=== PATIENT | female | born 1935 | race Caucasian/White ===

== ENCOUNTER 2017-06-30 19:14 | Inpatient (IN) | payer MEDICARE ==
[2017-06-30 19:42] LABS: #Eosinphils 0.4 thou/uL (0.0-0.7); #Lymphocytes 3.6 thou/uL (1.20-3.40); #Monocytes 0.9 thou/uL (0.11-0.59); #Neutrophils 7.9 thou/uL (1.40-6.50); %Basophils 0.3 % (0.0-1.0); %Eosinophils 2.9 % (0.0-10.0); %Lymphocytes 27.8 % (21.0-51.0); Hematocrit 43.1 % (36.0-47.0); Mean Platelet Volume 8.4 fL (7.4-10.4); Red Blood Cell (RBC) Count 4.48 mill/uL (4.20-5.40); White Blood Cell (WBC) Count 12.8 thou/uL (4.8-10.8)
[2017-06-30 20:17] LABS: ALT (SGPT) 19 U/L (8-55); AST (SGOT) 38 U/L (5-34); Alkaline Phosphatase 99 U/L (40-150); Anion Gap 19 mmol/L (10-20); BUN (Urea Nitrogen) 14 mg/dL (9.8-20.1); CK (CPK) 67 U/L (29-168); Calc. Creatinine Clearance 0 mL/min (70-130); Carbon Dioxide 26 mmol/L (23-31); Chloride 100 mmol/L (98-107); Estimated GFR-MDRD 49; Globulin 3.6 g/dL (2.4-3.5); Protein, Total 7.3 g/dL (6.0-8.3)
[2017-06-30] MEDS ORDERED: Apixaban 5 MG TAB PO SCH (20:30)
--- NOTE | 2017-06-30 20:58 | RAD ---
SINGLE VIEW OF THE CHEST: Comparison: 08-11-16 History: Chest pain. FINDINGS: Single view of the chest shows an enlarged but stable cardiomediastinal silhouette. Increased inters titial markings are stable. There is no evidence of consolidation, mass, or pleural effusion. Degene rative changes are seen in the spine. IMPRESSION: No evidence of acute cardiopulmonary disease. POS: [facility]
[2017-06-30] MEDS ORDERED: Digoxin 0.5 MG/2 ML AMP ONE (21:30)
[2017-06-30] MEDS: Diltiazem HCl 125 MG, IV Admixture Fee 1 EACH in Sodium Chloride 0.9% 100 ML SLOW IVP SCH (23:20)
[2017-06-30] MEDS ORDERED: Acetaminophen 325 MG TAB PO PRN (23:37)
[2017-06-30] MEDS ORDERED: Ondansetron HCl/PF 4 MG/2 ML Vial IVP PRN (23:37)
[2017-06-30] MEDS ORDERED: Ondansetron ODT 4 MG TAB SL PRN (23:37)
[2017-06-30] MEDS ORDERED: Diltiazem HCl 125 MG, IV Admixture Fee 1 EACH in Sodium Chloride 0.9% 100 ML SLOW IVP SCH (23:45)
[2017-06-30] MEDS ORDERED: Sodium Chloride 0.9% 1,000 ML IV SCH (23:45)
[2017-07-01 02:32] LABS: Troponin I 0.023 ng/mL (< 0.028)
[2017-07-01] MEDS ORDERED: Potassium Chloride 10 MEQ TAB PO SCH (09:00)
[2017-07-01] MEDS ORDERED: Furosemide 40 MG/4 ML VIAL SLOW IVP SCH (09:00)
[2017-07-01] MEDS ORDERED: Apixaban 5 MG TAB PO SCH (09:00)
[2017-07-01] MEDS: Sodium Chloride 0.9% 10 ML ONE ×2 (09:54→21:02)
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
[2017-07-01] MEDS ORDERED: Artificial Tears 18 DROP/0.9 ML EA EYE PRN (11:18)
[2017-07-01 11:25] LABS: Bilirubin Negative (Negative); Blood, Urine Moderate (Negative); Glucose, Urine (Dipstick) Negative (Negative); Ketone, Urine Negative (Negative); Nitrite Positive (Negative); Protein, Urine (Dipstick) Trace mg/dL (Neg-Trace)
[2017-07-01 11:30] LABS: Bacteria/HPF 4+ HPF (None Seen); Hyaline Casts/LPF 0-3 HYALINE CAST LPF (0-3 Hyaline); Squamous Epithelial 0-3 HPF (0-3)
--- NOTE | 2017-07-01 12:21 | ULT ---
ABDOMINAL ULTRASOUND: HISTORY: Mid abdominal pain. FINDINGS: The patient is post cholecystectomy. The common duct is within the normal range for post cholecyste ctomy status, at 6 mm. The aorta and IVC are not imaged due to overlying bowel gas. The pancreas i s obscured. the liver is mildly heterogeneous, however, no focal mass seen. Overlying bowel gas ob scures detail. The spleen appears unremarkable. Both kidneys are imaged. There is evidence of bilateral cortical thinning. No hydronephrosis. Bot h kidneys show equal size, measuring approximately 10 cm in length. IMPRESSION: Limited exam. The patient is post cholecystectomy. No abnormality identified. POS: [facility]
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
[2017-07-01 19:31] LABS: #Eosinphils 0.3 thou/uL (0.0-0.7); #Lymphocytes 2.3 thou/uL (1.20-3.40); #Neutrophils 7.2 thou/uL (1.40-6.50); %Basophils 0.3 % (0.0-1.0); %Eosinophils 3.1 % (0.0-10.0); %Lymphocytes 21.1 % (21.0-51.0); Hematocrit 41.8 % (36.0-47.0); Mean Platelet Volume 8.9 fL (7.4-10.4); Red Blood Cell (RBC) Count 4.21 mill/uL (4.20-5.40); White Blood Cell (WBC) Count 10.8 thou/uL (4.8-10.8)
[2017-07-01] MEDS: Diltiazem HCl 125 MG, IV Admixture Fee 1 EACH in Sodium Chloride 0.9% 100 ML SLOW IVP SCH (20:01)
[2017-07-01] MEDS ORDERED: Metoprolol Tartrate 25 MG TAB PO SCH ×2 (21:00)
[2017-07-01] MEDS: predniSONE 5 MG TAB PO SCH (21:00)
[2017-07-01] MEDS: Apixaban 5 MG TAB PO SCH (21:01)
[2017-07-01] MEDS: Mirtazapine 30 MG TAB PO SCH (21:02)
[2017-07-02] MEDS: ALPRAZolam 0.25 MG TAB PO PRN ×2 (00:12→22:29)
--- NOTE | 2017-07-02 02:06 | CON ---
DATE OF CONSULTATION: 07/01/2017 REFERRING PROVIDER: CHRISTEN Butcher REASON FOR CONSULTATION: Atrial fibrillation. HISTORY OF PRESENT ILLNESS: Ms. Mcnair is a pleasant 81-year-old woman, who is a patient of Dr. Gus Pedraza. She states she has had atrial fibrillation in the past. She has undergone multiple car dioversions. She last saw Dr. Pedraza several weeks ago, but they discussed cardioversion versus rat e control after recurrent atrial fibrillation. She was undecided. She recently presented with shortness of breath. No chest pain or pressure noted. She also complai rene of orthopnea. PAST MEDICAL HISTORY: Chronic atrial fibrillation, hypertension, hyperlipidemia, acid reflux, total abdominal hysterectomy. ALLERGIES: CODEINE, LISINOPRIL, PENICILLIN, and SULFA. HOME MEDICATIONS: Include prednisone, Crestor, Zoloft, Zyloprim, Eliquis, artificial tears, aspirin , potassium, Synthroid, metoprolol and Miralax. FAMILY HISTORY: Negative. SOCIAL HISTORY: No current tobacco or alcohol use. REVIEW OF SYSTEMS: Ten-point review of systems is reviewed and as above, otherwise negative. PHYSICAL EXAMINATION: GENERAL: Patient is a pleasant female who is in no acute distress. The patient appears her stated age. VITAL SIGNS: Blood pressure 129/80, pulse 103, temperature 98. NEUROLOGIC: The patient is alert and oriented times 3 with no focal neurologic deficits. HEENT: Sclerae without icterus. Mouth has moist mucous membranes with normal pallor. NECK: No JVD. Carotid upstroke brisk. No bruits bilaterally. LUNGS: Clear to auscultation with unlabored respirations. BACK: No scoliosis or kyphosis. CARDIAC: Irregular irregular. No significant rubs, murmurs, thrills, or gallops noted throughout t he precordium. PMI is not displaced. There is no parasternal heave. ABDOMEN: Soft, nontender, nondistended. No peritoneal signs present. No hepatosplenomegaly. No a bnormal striae. EXTREMITIES: 2+ femoral and 2+ dorsalis pedis pulses. No cyanosis, clubbing, or edema. SKIN: No gross abnormalities. LABORATORY DATA: Hemoglobin 14.2, creatinine 1.08, sodium 140. Peak troponin 0.050. IMPRESSION: 1. Atrial fibrillation with rapid ventricular response. 2. Shortness of breath. RECOMMENDATIONS: Ms. Mcnair is currently on IV cardizem. We will continue. Metoprolol has been started 25 mg 1 p.o. b.i.d. We will increase to 50 mg 1 p.o. b.i.d. She has also been on p.o. Card izem at home for rate control. Duration of her atrial fibrillation is unknown. The longer the dura tion, the harder it is to convert to sinus rhythm. Continue Eliquis.
[2017-07-02 04:41] LABS: Hematocrit 43.6 % (36.0-47.0)
[2017-07-02 04:42] LABS: #Eosinphils 0.1 thou/uL (0.0-0.7); #Lymphocytes 1.6 thou/uL (1.20-3.40); #Monocytes 0.4 thou/uL (0.11-0.59); #Neutrophils 8.1 thou/uL (1.40-6.50); %Basophils 0.1 % (0.0-1.0); %Lymphocytes 15.5 % (21.0-51.0); %Monocytes 3.9 % (0.0-10.0); Hematocrit 41.5 % (36.0-47.0); Red Blood Cell (RBC) Count 4.21 mill/uL (4.20-5.40); White Blood Cell (WBC) Count 10.2 thou/uL (4.8-10.8)
[2017-07-02 05:10] LABS: ALT (SGPT) 16 U/L (8-55); AST (SGOT) 12 U/L (5-34); Alkaline Phosphatase 93 U/L (40-150); Anion Gap 13 mmol/L (10-20); BUN (Urea Nitrogen) 11 mg/dL (9.8-20.1); Calc. Creatinine Clearance 79 mL/min (70-130); Calcium 9.3 mg/dL (7.8-10.44); Carbon Dioxide 33 mmol/L (23-31); Chloride 100 mmol/L (98-107); Estimated GFR-MDRD 53; Globulin 3.1 g/dL (2.4-3.5); Protein, Total 6.7 g/dL (6.0-8.3)
[2017-07-02] MEDS: Levothyroxine Sodium 25 MCG TAB PO SCH (05:25)
[2017-07-02] MEDS: Aspirin 81 mg Enteric Coated Tablet PO SCH (09:42)
[2017-07-02] MEDS: Apixaban 5 MG TAB PO SCH ×2 (09:42→21:02)
[2017-07-02] MEDS: Metoprolol Tartrate 25 MG TAB PO SCH ×2 (09:43→21:02)
[2017-07-02] MEDS: Nitrofurantoin Monohyd/M-Cryst 100 MG CAP PO SCH ×2 (09:43→20:59)
[2017-07-02] MEDS: Allopurinol 300 MG TAB PO SCH (09:43)
[2017-07-02] MEDS: Diltiazem HCl 125 MG, IV Admixture Fee 1 EACH in Sodium Chloride 0.9% 100 ML SLOW IVP SCH (20:58)
[2017-07-02] MEDS: Mirtazapine 30 MG TAB PO SCH (20:59)
[2017-07-02] MEDS ORDERED: Diltiazem HCl SR 60 mg Capsule PO SCH (21:00)
[2017-07-02] MEDS: predniSONE 5 MG TAB PO SCH (21:01)
--- NOTE | 2017-07-02 21:11 | PRG ---
DATE OF SERVICE: 07/02/2017 SERVICE: Pulmonary Medicine. INTERVAL HISTORY: The patient is doing really well from a respiratory standpoint. She denies any c urrent fevers, chills, nausea, or vomiting. She continues to cough, but does not bringing up any ph legm. She has a little bit of orthopnea. Otherwise, she is much improved compared to presentation. PHYSICAL EXAMINATION: VITAL SIGNS: Afebrile, pulse 95, blood pressure 122/71, respirations 22, and saturation 95% on 2 li ters nasal cannula. HEENT: Normocephalic and atraumatic. Sclerae are white, conjunctivae pink. Oral and nasal mucosa is moist without lesions. LUNGS: Decent air entry. Crackles are present throughout bibasilar regions. HEART: Normal rate, irregular. ABDOMEN: Soft, nontender, and nondistended. Bowel sounds positive. MUSCULOSKELETAL: No cyanosis or clubbing. There is trace to 1+ pitting in the bilateral lower extr emities. LABORATORY DATA: Hemoglobin 14.0. A comprehensive metabolic profile is otherwise unremarkable exce pt for glucose of 170 and bicarbonate of 33. BNP 197 previously. Urine cultures growing E. coli. C. diff antigen and toxin is unremarkable. ASSESSMENT: 1. Acute on chronic hypoxic respiratory failure. 2. Interstitial lung disease, currently at baseline. 3. Atrial fibrillation with rapid ventricular response, currently rate controlled. PLAN: We will continue to diurese the patient to euvolemia. Supportive care and a steroid taper wi ll be continued through the inpatient and outpatient basis. Pulmonary Critical Care will continue t o follow while the patient remains in-house.
[2017-07-03] MEDS: Levothyroxine Sodium 25 MCG TAB PO SCH (05:56)
[2017-07-03] MEDS ORDERED: Diltiazem HCl 125 MG, IV Admixture Fee 1 EACH in Sodium Chloride 0.9% 100 ML SLOW IVP SCH ×2 (08:47→09:15)
[2017-07-03] MEDS: Apixaban 5 MG TAB PO SCH ×2 (08:49→21:33)
[2017-07-03] MEDS: Aspirin 81 mg Enteric Coated Tablet PO SCH (08:49)
[2017-07-03] MEDS: Metoprolol Tartrate 25 MG TAB PO SCH ×2 (08:49→21:33)
[2017-07-03] MEDS: Allopurinol 300 MG TAB PO SCH (08:49)
[2017-07-03] MEDS: Nitrofurantoin Monohyd/M-Cryst 100 MG CAP PO SCH ×2 (08:50→21:33)
--- NOTE | 2017-07-03 08:53 | PRG ---
DATE OF SERVICE: 07/03/2017 SUBJECTIVE: The patient is awake. She is on oxygen. She states she is less short of breath today. She is still in atrial fibrillation. She is on a Cardizem drip. PHYSICAL EXAMINATION: VITAL SIGNS: Blood pressure is 137/73, pulse 99, respiration 26. NECK: Supple. JVP cannot be assessed due to obese neck. Carotid had good upstroke with no thyrome esme. COR: Irregularly irregular with variable first and second heart sound. There was no murmur, S3. CHEST: A few crackles. ABDOMEN: Soft, nontender, obese. Normoactive bowel sounds, no bruit or organomegaly. EXTREMITIES: Trace edema. She had palpable pedal pulses. SKIN: There is no evidence of ulcer, lesion or rash. NEUROLOGIC: She is awake, alert, and oriented to person, place, and time. There is no lab in the chart. ASSESSMENT: 1. Atrial fibrillation with rapid ventricular response, now controlled. 2. Interstitial lung disease. 3. Hypertension. 4. Obesity. 5. Multiple medical problems. 6. Urinary tract infection. PLAN: 1. We will continue the medications for her urinary tract infection. 2. We will follow up with lab in the morning. 3. Further orders per Cardiology.
[2017-07-03] MEDS ORDERED: Furosemide 20 MG/2 ML VIAL SLOW IVP SCH (11:45)
--- NOTE | 2017-07-03 11:55 | PRG ---
DATE OF SERVICE: 07/03/2017 SERVICE: Pulmonary Medicine. INTERVAL HISTORY: The patient is doing great from a respiratory standpoint. She continues to have improvement in symptoms. She has less dyspnea. She is yet to work with physical therapy in a meani ngful way, but does get out of bed. PHYSICAL EXAMINATION: VITAL SIGNS: Currently afebrile with T-max of 99.8. Pulse 87, blood pressure 129/73, respirations 18, saturation 92% on 2 liters nasal cannula. GENERAL: Patient is awake, alert, in no apparent distress. LUNGS: Decent air entry. There is a slightly prolonged expiratory phase today with crackles presen t throughout bibasilar and anterior lung reyna. There is expiratory wheezing today. HEART: Normal rate, regular. ABDOMEN: Soft, nontender, nondistended. Bowel sounds positive. MUSCULOSKELETAL: No cyanosis or clubbing. There is trace pitting in the bilateral lower extremitie s. NEUROLOGIC: Grossly nonfocal. ASSESSMENT: 1. Acute on chronic hypoxic respiratory failure. 2. Interstitial lung disease, currently at baseline. 3. Atrial fibrillation with rapid ventricular response, currently normal rhythm. PLAN: We will continue to diurese the patient to euvolemia. Because of her wheezing today, we will provide with a DuoNeb and then continued him on a p.r.n. basis. Pulmonary will continue to follow while the patient remains in house. We will start focusing on increasing mobility as tolerated.
--- NOTE | 2017-07-03 17:42 | PDOC.CTH ---
<Indu Cosby - Last Filed: 07/03/17 17:46> Cardiology Progress Note - Subjective Patient seen and examined. Reports SOB continues to improve. She denies CP or palpitations. - Objective Vital Signs Temp Pulse Pulse Pulse Resp BP BP 07/03/17 16:00 97.8 F 87 18 07/03/17 15:03 103 H 20 07/03/17 12:00 97.8 F 87 18 07/03/17 10:45 83 86 108/56 L 106/61 07/03/17 08:00 97.5 F L 87 18 BP BP Pulse Ox 07/03/17 16:00 112/59 L 91 L 07/03/17 15:03 96 07/03/17 12:00 112/59 L 91 L 07/03/17 10:45 07/03/17 08:00 129/73 95 Weight 242 lb 9.6 oz 07/02/17 07/03/17 07/04/17 06:59 06:59 06:59 Intake Total 895.4 1103.5 Output Total 900 200 Balance -4.6 903.5 - Physical Examination General/Neuro: alert & oriented x3, NAD Neck: no JVD present Lungs: unlabored respirations, other: (scattered wheezes, rales) Heart: other: (irregular) Extremities: other: (1+ edema BLE) - Telemetry Telemetry Rhythm: afib - Labs Result Diagrams: 07/02/17 04:17 07/02/17 04:17 Troponin/CKMB CK-MB (CK-2) 1.5 ng/mL (0-6.6) 06/30/17 19:33 Troponin I 0.023 ng/mL (< 0.028) 07/01/17 01:43 - Assessment/Plan 1. Afib with RVR 2. SOB Ms. Mcnair' status continues to improve. Afib is rate controlled on current therapies.We will add cardizem 180mg po this morning and start weaning cardizem gtt. We will monitor her response. <Amilcar Byrd - Last Filed: 07/04/17 06:24> Cardiology Progress Note - Objective Vital Signs Temp Pulse Resp BP Pulse Ox 07/04/17 00:00 98.1 F 84 18 130/77 90 L 07/03/17 19:40 99.1 F 102 H 18 119/62 96 Weight 242 lb 9.6 oz 07/02/17 07/03/17 07/04/17 06:59 06:59 06:59 Intake Total 895.4 1103.5 1167.4 Output Total 900 200 625 Balance -4.6 903.5 542.4 - Labs Result Diagrams: 07/04/17 05:18 07/03/17 19:31 Troponin/CKMB CK-MB (CK-2) 1.5 ng/mL (0-6.6) 06/30/17 19:33 Troponin I 0.023 ng/mL (< 0.028) 07/01/17 01:43 - Assessment/Plan Pt seen and examined. Continue to wean off IV CCB and recommend rate control Daughter is present who agrees with the plan
[2017-07-03 19:39] LABS: #Eosinphils 0.6 thou/uL (0.0-0.7); #Lymphocytes 1.1 thou/uL (1.20-3.40); #Monocytes 0.6 thou/uL (0.11-0.59); #Neutrophils 7.9 thou/uL (1.40-6.50); %Basophils 0.2 % (0.0-1.0); %Eosinophils 5.8 % (0.0-10.0); %Lymphocytes 11.1 % (21.0-51.0); %Monocytes 5.6 % (0.0-10.0); Hematocrit 39.5 % (36.0-47.0); Mean Platelet Volume 7.5 fL (7.4-10.4); Red Blood Cell (RBC) Count 3.99 mill/uL (4.20-5.40); White Blood Cell (WBC) Count 10.2 thou/uL (4.8-10.8)
[2017-07-03] MEDS: predniSONE 5 MG TAB PO SCH (21:33)
[2017-07-03] MEDS: ALPRAZolam 0.25 MG TAB PO PRN (21:33)
[2017-07-03] MEDS: Mirtazapine 30 MG TAB PO SCH (21:34)
[2017-07-04 06:03] LABS: #Eosinphils 0.3 thou/uL (0.0-0.7); #Lymphocytes 1.1 thou/uL (1.20-3.40); #Monocytes 0.4 thou/uL (0.11-0.59); #Neutrophils 6.4 thou/uL (1.40-6.50); %Eosinophils 3.1 % (0.0-10.0); %Lymphocytes 13.6 % (21.0-51.0); %Monocytes 4.4 % (0.0-10.0); Hematocrit 38.1 % (36.0-47.0); Mean Platelet Volume 7.9 fL (7.4-10.4); Red Blood Cell (RBC) Count 3.84 mill/uL (4.20-5.40); White Blood Cell (WBC) Count 8.1 thou/uL (4.8-10.8)
[2017-07-04] MEDS: Levothyroxine Sodium 25 MCG TAB PO SCH (06:31)
[2017-07-04 06:35] LABS: ALT (SGPT) 12 U/L (8-55); AST (SGOT) 10 U/L (5-34); Alkaline Phosphatase 85 U/L (40-150); Anion Gap 13 mmol/L (10-20); BUN (Urea Nitrogen) 14 mg/dL (9.8-20.1); Bilirubin, Total 0.7 mg/dL (0.2-1.2); Calc. Creatinine Clearance 81 mL/min (70-130); Carbon Dioxide 33 mmol/L (23-31); Chloride 98 mmol/L (98-107); Estimated GFR-MDRD 55; Globulin 3.1 g/dL (2.4-3.5); Protein, Total 6.4 g/dL (6.0-8.3)
[2017-07-04] MEDS: Allopurinol 300 MG TAB PO SCH (09:06)
[2017-07-04] MEDS: Aspirin 81 mg Enteric Coated Tablet PO SCH (09:06)
[2017-07-04] MEDS: Metoprolol Tartrate 25 MG TAB PO SCH ×2 (09:07→21:00)
[2017-07-04] MEDS: Furosemide 20 MG/2 ML VIAL SLOW IVP SCH (09:07)
[2017-07-04] MEDS: Nitrofurantoin Monohyd/M-Cryst 100 MG CAP PO SCH ×2 (09:08→21:01)
[2017-07-04] MEDS: Apixaban 5 MG TAB PO SCH ×2 (10:50→21:00)
--- NOTE | 2017-07-04 14:20 | PRG ---
DATE OF SERVICE: 07/04/2017 SUBJECTIVE: Ms. Mcnair status is unchanged. Her heart rate appears to be better controlled. She is on low-dose Cardizem at 2.5 mg per hour. OBJECTIVE: VITAL SIGNS: Blood pressure 122/68, pulse 90, respirations 20. LUNGS: Clear to auscultation. HEART: Irregularly irregular. ABDOMEN: Soft, nontender, nondistended. EXTREMITIES: No edema. IMPRESSION: Atrial fibrillation. RECOMMENDATIONS: 1. We will discontinue her IV Cardizem. 2. Increase p.o. Cardizem from 180 to 240 q.a.m. 3. Continue Eliquis. 4. If her heart rate is stable in a.m., would be okay from my standpoint to discharge home with out patient follow up with Dr. Amaury Pedraza.
--- NOTE | 2017-07-04 17:07 | PRG ---
DATE OF SERVICE: 07/04/2017 SERVICE: Pulmonary Medicine. INTERVAL HISTORY: The patient is actually breathing fairly comfortably this morning. She has no co mplaints of nausea, vomiting, chest pain, shortness of breath beyond baseline. She is coughing less today and not bringing up any sputum. Otherwise, there has been no interval change her condition. PHYSICAL EXAMINATION: VITAL SIGNS: Afebrile, pulse 80, blood pressure 114/59, respirations 20, saturation 95% on 2 liters nasal cannula. GENERAL: Patient is awake, alert, in no apparent distress. LUNGS: Decreased air entry. Crackles are present. No prolonged expiratory phase, wheezing or rhon chi. HEART: Normal rate, regular. ABDOMEN: Soft, nontender, nondistended. Bowel sounds positive. MUSCULOSKELETAL: No cyanosis or clubbing. No pitting in the bilateral lower extremities. NEUROLOGIC: Grossly nonfocal. ASSESSMENT: 1. Acute on chronic hypoxic respiratory failure. 2. Interstitial lung disease, currently at baseline. 3. Atrial fibrillation with rapid ventricular response, currently normal rhythm. PLAN: The patient will continue to diurese the euvolemia Pulmonary Critical Care will continue to follow while she remains in house for the time being. We will continue our efforts on mobilizing th e patient as tolerated.
[2017-07-04] MEDS: Mirtazapine 30 MG TAB PO SCH (21:02)
[2017-07-04] MEDS: predniSONE 5 MG TAB PO SCH (21:02)
[2017-07-05] MEDS: Levothyroxine Sodium 25 MCG TAB PO SCH (06:24)
[2017-07-05] MEDS: Metoprolol Tartrate 25 MG TAB PO SCH (09:37)
[2017-07-05] MEDS: Aspirin 81 mg Enteric Coated Tablet PO SCH (09:37)
[2017-07-05] MEDS: Furosemide 20 MG/2 ML VIAL SLOW IVP SCH (09:37)
[2017-07-05] MEDS: Apixaban 5 MG TAB PO SCH ×2 (09:37→20:32)
[2017-07-05] MEDS: Nitrofurantoin Monohyd/M-Cryst 100 MG CAP PO SCH ×2 (09:37→20:33)
[2017-07-05] MEDS: Allopurinol 300 MG TAB PO SCH (09:37)
[2017-07-05] MEDS: ALPRAZolam 0.25 MG TAB PO PRN (12:23)
--- NOTE | 2017-07-05 15:14 | PRG ---
DATE OF SERVICE: 07/05/2017 SUBJECTIVE: This morning she denies any pain, no shortness of breath. PHYSICAL EXAMINATION: VITAL SIGNS: Pulse 108, temperature 97, blood pressure 132/75. CHEST: Reveals decreased breath sounds without any wheezing. CARDIAC: Normal S1-S2. No gallops. ABDOMEN: Soft. No masses. IMPRESSION: Acute on chronic respiratory failure, improved, interstitial lung disease, atrial fibri llation. PLAN: Continue PT, supportive care, prednisone, neb treatments. We will follow.
--- NOTE | 2017-07-05 16:38 | PDOC.CTH ---
Cardiology Progress Note - Subjective No new issues or complaints. Tolerating all meds. - Objective Vital Signs Temp Pulse Resp BP BP Pulse Ox 07/05/17 12:24 97 22 H 94 L 07/05/17 12:00 98.6 F 94 20 122/64 90 L 07/05/17 11:52 98.7 F 92 16 122/64 95 07/05/17 09:37 108 H 07/05/17 08:14 97.9 F 108 H 18 132/75 95 07/05/17 08:08 97.8 F 85 18 Weight 241 lb 9.6 oz 07/04/17 07/05/17 07/06/17 06:59 06:59 06:59 Intake Total 1621.1 1390 Output Total 1925 1250 Balance -303.9 140 - Physical Examination General/Neuro: alert & oriented x3, NAD Neck: no JVD present Lungs: unlabored respirations Heart: other: (Irregular) Abdomen: NT/ND Extremities: other: (no edema.) - Telemetry Telemetry Rhythm: Afib HR 90's - Labs Result Diagrams: 07/04/17 05:18 07/04/17 05:18 Troponin/CKMB CK-MB (CK-2) 1.5 ng/mL (0-6.6) 06/30/17 19:33 Troponin I 0.023 ng/mL (< 0.028) 07/01/17 01:43 - Assessment/Plan 1. Afib rvr, rate controlled now. 2. Chronic interstitial lung disease. PLAN: - Continue rate control, will increase BB today. - Continue Eliquis for stroke prophylaxis - Lasix to PRN only. - May d/c home anytime from cardiac perspective on current regimen. - Will follow.
[2017-07-05] MEDS ORDERED: ALPRAZolam 0.25 MG TAB PO PRN (17:21)
[2017-07-05 19:03] LABS: #Eosinphils 0.8 thou/uL (0.0-0.7); #Lymphocytes 1.7 thou/uL (1.20-3.40); #Monocytes 0.8 thou/uL (0.11-0.59); #Neutrophils 7.1 thou/uL (1.40-6.50); %Basophils 0.2 % (0.0-1.0); %Eosinophils 7.3 % (0.0-10.0); %Lymphocytes 16.4 % (21.0-51.0); %Monocytes 7.6 % (0.0-10.0); Hematocrit 37.8 % (36.0-47.0); Mean Platelet Volume 7.2 fL (7.4-10.4); Red Blood Cell (RBC) Count 3.86 mill/uL (4.20-5.40); White Blood Cell (WBC) Count 10.3 thou/uL (4.8-10.8)
[2017-07-05] MEDS: Metoprolol Tartrate 100 MG TAB PO SCH (20:32)
[2017-07-05] MEDS: predniSONE 5 MG TAB PO SCH (20:33)
[2017-07-05] MEDS: Mirtazapine 30 MG TAB PO SCH (20:33)
[2017-07-06 06:06] VITALS: BMI 39.6
[2017-07-06] MEDS: Levothyroxine Sodium 25 MCG TAB PO SCH (07:32)
[2017-07-06] MEDS: Allopurinol 300 MG TAB PO SCH (09:29)
[2017-07-06] MEDS: Aspirin 81 mg Enteric Coated Tablet PO SCH (09:29)
[2017-07-06] MEDS: Apixaban 5 MG TAB PO SCH (09:29)
[2017-07-06] MEDS: Nitrofurantoin Monohyd/M-Cryst 100 MG CAP PO SCH (09:29)
[2017-07-06] MEDS: Metoprolol Tartrate 100 MG TAB PO SCH (09:29)
[2017-07-06 12:05] VITALS: BP 108/61; TEMP 98.2
--- NOTE | 2017-07-06 17:25 | PRG ---
DATE OF SERVICE: 07/06/2017 SUBJECTIVE: Ya Mcnair this morning is awake, alert, and responsive. Denies any shortness of sanaz th. OBJECTIVE: VITAL SIGNS: Blood pressure 130/92, pulse 89, sats are 97% on 2 liters, respirations 20, and temper ature 98. CHEST: Decreased breath sounds, no wheezing. CARDIAC: Normal S1, S2. No gallops. ABDOMEN: Soft. No masses. LABORATORY DATA: White count 10,000, H and H 10 and 37. IMPRESSION: 1. Respiratory failure, resolved. 2. Supraventricular tachycardia. PLAN: 1. She will be discharged home on Eliquis, neb treatments, supportive care. 2. We will follow with Dr. Bah.
--- NOTE | 2017-07-06 20:18 | DIS ---
DATE OF ADMISSION: 07/01/2017 DATE OF DISCHARGE: 07/06/2017 CHIEF COMPLAINT ON ADMISSION: Shortness of breath. History and physical have previously been dictated. I will resume from there with hospital course. HOSPITAL COURSE: Patient was placed in a telemetry bed where she was noted to be in atrial fibrilla tion with RVR. She had leukocytosis which was found to be an acute urinary tract infection. She al so had abdominal pain and cramping with some diarrhea. She was put on a Cardene drip to control her rate. Cardiology was consulted and the stools were checked for C. diff. Abdominal ultrasound was obtained, which showed that she had her gallbladder out, but otherwise was unremarkable. Dr. Manning was asked to see the patient in consultation, concerning her interstitial lung disease. He saw the patient on 07/01/2017 as well and felt her lungs were stable and agreed with Cardiology consultation . Dr. Byrd saw the patient on 07/01/2017 and agreed with the Cardizem drip and slow weaning. The patient's UA came back, confirming infection and she was then begun on Macrobid. The culture re turned E. coli with sensitivity to nitrofurantoin. Her C. diff evaluation returned negative for ant igen and toxin. The patient did well as her rate soon responded to medical therapy. By 07/02/2017, she is resting comfortably. On 07/03/2017, she was on oxygen, which helped her to be less short of breath. She was still in atrial fibrillation with rapid drip, so that the trip was increased by , aroused easily. No complaints. Vital signs were stable. Her lungs were at baseline, her rate was finally into the 80s and oral Cardizem was begun along with the drip. Over the next 2 day s, the drip was slowly weaned and a beta-helen dosage increase was begun, increasing Lopressor fro m 25 to 50 to 75, and finally on the day of discharge, she was at 100 mg b.i.d. The Cardizem drip w as eventually able to be weaned off, her diltiazem oral dose was increased from 180 to 240. She zackary erated this quite well throughout 07/05 such that by 07/06, she was able to be discharged home. DISCHARGE DIAGNOSES: 1. Atrial fibrillation with rapid ventricular response, interstitial lung disease, severe and stero id dependent. 2. Urinary tract infection, actively being treated. 3. Significant anxiety disorder requiring Xanax 0.25 mg on p.r.n. basis. DISCHARGE MEDICATIONS: Her usual medications plus an increased dose of Lopressor to 100 mg b.i.d., Cardizem increased from 180 to 240 CD one daily, Macrobid 100 b.i.d. for 4 more days, and Xanax 0.25 mg on a p.r.n. basis. DISCHARGE INSTRUCTIONS: She is discharged in stable condition and will follow up with Dr. Chow in 72 hours. Time needed to review the patient's records in detail, consult time involving the patient and family . Chart reviewed, chart preparation and dictation came to 40 minutes.
== END 2017-07-06 13:00 | disposition home or self-care (01) | DRG 308 ==
LOC: ERS 19:14 → 2NO 21:12
PROVIDERS: ADMIT Specialist; ATTEND Specialist
DX: I48.2 Chronic atrial fibrillation (principal); J96.01 Acute respiratory failure with hypoxia; J84.9 Interstitial pulmonary disease, unspecified; N39.0 Urinary tract infection, site not specified; I48.91 Unspecified atrial fibrillation; B96.20 Unspecified Escherichia coli [E. coli] as the cause of diseases classified elsewhere; R19.7 Diarrhea, unspecified; Z79.51 Long term (current) use of inhaled steroids; Z79.01 Long term (current) use of anticoagulants; I10 Essential (primary) hypertension; E78.5 Hyperlipidemia, unspecified; K21.9 Gastro-esophageal reflux disease without esophagitis; F41.1 Generalized anxiety disorder; E03.9 Hypothyroidism, unspecified; E87.70 Fluid overload, unspecified
CPT/HCPCS: 36415; 71010; 76700; 80053; 81001; 82553; 82565; 83690; 83880; 84443; 84484; 85025; 85379; 87077; 87086; 87186; 87324; 87449; 93005; 93306; 94640; 94760; 96365; 96366; 96374; 96375; 96376; A4216; G8978-GP-CK; G8979-GP-CI; J1160; J1940; J7050; J7620

== ENCOUNTER 2017-10-16 08:11 | Inpatient (IN) | payer MEDICARE ==
[2017-10-16] MEDS ORDERED: methylPREDNISolone Sod Succ/PF 125 MG/2 ML VIAL ONE (08:50)
[2017-10-16] MEDS ORDERED: Water For Inject, Bacteriostat 30 ML ONE (08:50)
[2017-10-16 08:59] LABS: #Eosinphils 0.2 thou/uL (0.0-0.7); #Lymphocytes 1.6 thou/uL (1.20-3.40); #Monocytes 0.7 thou/uL (0.11-0.59); #Neutrophils 10.6 thou/uL (1.40-6.50); %Basophils 0.3 % (0.0-1.0); %Eosinophils 1.7 % (0.0-10.0); %Lymphocytes 12.1 % (21.0-51.0); %Monocytes 5.1 % (0.0-10.0); %Neutrophils 80.8 % (42.0-75.0); Hemoglobin 13.6 g/dL (12.0-16.0); Mean Corpuscular HGB CONC 31.6 g/dL (32.0-36.0); Mean Corpuscular Hemoglobin 29.3 pg (27.0-31.0); Mean Corpuscular Volume 92.8 fl (81.0-99.0); Mean Platelet Volume 8.3 fL (7.4-10.4); Platelet Count 235 thou/uL (130-400); RBC Distribution Width 14.3 % (11.5-14.5); Red Blood Cell (RBC) Count 4.66 mill/uL (4.20-5.40); White Blood Cell (WBC) Count 13.2 thou/uL (4.8-10.8)
--- NOTE | 2017-10-16 09:07 | RAD ---
CHEST ONE VIEW: History: Emergency exam. Comparison: 06-30-17 FINDINGS: There are left upper and right lower lobe airspace opacities and prominent interstitial changes. Heart size is enlarged. No pneumothorax. IMPRESSION: 1. Left upper and right lower lobe airspace opacities concerning for infection. 2. Cardiomegaly. 3. Multiple superimposed pulmonary venous congestion or early edema. POS: [facility]
[2017-10-16 09:24] LABS: ALT (SGPT) Less than 7 U/L (8-55); AST (SGOT) 14 U/L (5-34); Alkaline Phosphatase 102 U/L (40-150); Anion Gap 15 mmol/L (10-20); BUN (Urea Nitrogen) 8 mg/dL (9.8-20.1); Bilirubin, Total 0.8 mg/dL (0.2-1.2); CK (CPK) 34 U/L (29-168); Calc. Creatinine Clearance 0 mL/min (70-130); Calcium 9.9 mg/dL (7.8-10.44); Carbon Dioxide 32 mmol/L (23-31); Chloride 92 mmol/L (98-107); Estimated GFR-MDRD 64; Globulin 4.3 g/dL (2.4-3.5); Glucose 148 mg/dL (83-110); Potassium 3.4 mmol/L (3.5-5.1); Protein, Total 8.3 g/dL (6.0-8.3); Sodium 136 mmol/L (136-145)
[2017-10-16] MEDS ORDERED: cefTRIAXone\\ROCEPHIN 2 GM in Sodium Chloride 0.9% 100 ML IVPB SCH (09:30)
[2017-10-16] MEDS ORDERED: Azithromycin 500 MG in Sodium Chloride 0.9% 250 ML 250 ML IVPB ONE (09:30)
[2017-10-16 09:34] LABS: Troponin I Less than 0.010 ng/mL (< 0.028)
[2017-10-16] MEDS ORDERED: Diltiazem HCl 125 MG, Admixture Fee 1 EACH in Sodium Chloride 0.9% 100 ML IVPB SCH (10:00)
[2017-10-16] MEDS ORDERED: ALPRAZolam 0.5 MG TAB PO SCH (11:30)
[2017-10-16] MEDS ORDERED: ALPRAZolam 0.25 MG TAB ONE (11:49)
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
[2017-10-16 13:22] LABS: Lactic Acid 0.9 mmol/L (0.5-2.2)
[2017-10-16] MEDS ORDERED: ALPRAZolam 0.25 MG TAB PO PRN (15:00)
[2017-10-16 15:42] LABS: Bilirubin Small (Negative); Blood, Urine Small (Negative); Clarity CLEAR (Clear); Glucose, Urine (Dipstick) Negative (Negative); Leukocyte Small (Negative); Nitrite Negative (Negative); Protein, Urine (Dipstick) 100 mg/dL (Neg-Trace); Specific Gravity, Urine 1.019 (1.002-1.036)
[2017-10-16 15:46] LABS: Bacteria/HPF None Seen HPF (None Seen); Hyaline Casts/LPF 4-6 HYALINE CAST LPF (0-3 Hyaline); Pathc Cast-AUWi Flag 0.81 (0-2.49)
[2017-10-16 15:49] LABS: Renal Epithelial None Seen HPF (0-3); Transitional Epithelial NONE SEEN HPF (0-3)
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
[2017-10-16] MEDS ORDERED: Ondansetron ODT 4 MG TAB SL PRN (20:39)
[2017-10-16] MEDS ORDERED: Ondansetron HCl/PF 4 MG/2 ML Vial IVP PRN (20:39)
[2017-10-16] MEDS ORDERED: Acetaminophen 325 MG TAB PO PRN ×2 (20:46→20:47)
[2017-10-16] MEDS ORDERED: cefTRIAXone\\ROCEPHIN 1 GM, Syringe 0.4 ML in Sterile Water 9.6 ML SLOW IVP SCH (21:00)
[2017-10-16] MEDS ORDERED: ALPRAZolam 0.25 MG TAB PO SCH (22:00)
[2017-10-16 22:40] VITALS: BMI 39.3
[2017-10-16] MEDS: Apixaban 5 MG TAB PO SCH (23:25)
[2017-10-16] MEDS: Mirtazapine 30 MG TAB PO SCH (23:25)
[2017-10-16] MEDS: Rosuvastatin 10 MG TAB PO SCH (23:26)
[2017-10-16] MEDS: Benzonatate 100 MG CAP PO PRN (23:26)
[2017-10-17] MEDS: Levothyroxine Sodium 25 MCG TAB PO SCH (05:36)
[2017-10-17] MEDS: Diltiazem HCl 125 MG, Admixture Fee 1 EACH in Sodium Chloride 0.9% 100 ML IVPB SCH ×2 (05:36→13:01)
[2017-10-17 06:30] LABS: #Lymphocytes 0.9 thou/uL (1.20-3.40); #Monocytes 0.2 thou/uL (0.11-0.59); #Neutrophils 4.8 thou/uL (1.40-6.50); %Basophils 0.8 % (0.0-1.0); %Eosinophils 0.4 % (0.0-10.0); %Lymphocytes 14.9 % (21.0-51.0); %Monocytes 3.1 % (0.0-10.0); %Neutrophils 80.8 % (42.0-75.0); Hemoglobin 12.4 g/dL (12.0-16.0); Mean Corpuscular HGB CONC 31.4 g/dL (32.0-36.0); Mean Corpuscular Hemoglobin 29.6 pg (27.0-31.0); Mean Corpuscular Volume 94.3 fl (81.0-99.0); Mean Platelet Volume 8.5 fL (7.4-10.4); Platelet Count 203 thou/uL (130-400); RBC Distribution Width 14.3 % (11.5-14.5); Red Blood Cell (RBC) Count 4.21 mill/uL (4.20-5.40); White Blood Cell (WBC) Count 5.9 thou/uL (4.8-10.8)
[2017-10-17 06:47] LABS: ALT (SGPT) 7 U/L (8-55); AST (SGOT) 14 U/L (5-34); Albumin 3.6 g/dL (3.4-4.8); Alkaline Phosphatase 92 U/L (40-150); Anion Gap 15 mmol/L (10-20); BUN (Urea Nitrogen) 15 mg/dL (9.8-20.1); Bilirubin, Total 0.3 mg/dL (0.2-1.2); Calc. Creatinine Clearance 85 mL/min (70-130); Calcium 9.5 mg/dL (7.8-10.44); Carbon Dioxide 29 mmol/L (23-31); Chloride 95 mmol/L (98-107); Estimated GFR-MDRD 64; Globulin 3.8 g/dL (2.4-3.5); Glucose 160 mg/dL (83-110); Potassium 3.4 mmol/L (3.5-5.1); Protein, Total 7.4 g/dL (6.0-8.3); Sodium 136 mmol/L (136-145)
--- NOTE | 2017-10-17 08:08 | PRG ---
DATE OF SERVICE: 10/17/2017 SUBJECTIVE: The patient had a good night. She states she is breathing a little bit better. She rem ained on the Cardizem drip. She remains in atrial fibrillation, but her rate is better controlled at 84. PHYSICAL EXAMINATION: GENERAL: She is awake. She is alert. She is on oxygen. She is on a Cardizem drip. VITAL SIGNS: Blood pressure 126/68. She is afebrile. NECK: Supple. JVD cannot be assessed due to obese neck. Carotid had good upstroke with no thyromeg tish. COR: Irregularly irregular. CHEST: A few scattered wheezing, a few crackles. ABDOMEN: Soft, obese, nontender with normoactive bowel sounds. No bruit or organomegaly. EXTREMITIES: No edema or cyanosis. She had palpable pedal pulses. SKIN: There is no evidence of ulceration lesion, or rash. NEUROLOGIC: She is awake, alert, and oriented to person, place, and time. LABORATORY DATA: Her white blood cells better at 5.9, her H&H is 12.4 and 39.7. Her platelet count is 203. Potassium is 3.4. ASSESSMENT: 1. Pneumonia. 2. Atrial fibrillation with rapid ventricular response, now with better rate control. 3. Hypothyroidism. 4. Hypertension. 5. Anxiety. 6. Depression. 7. Dementia. 8. Pulmonary scarring. 9. Hypokalemia. PLAN: We will continue as is. We will continue her on Cardizem drip, Cardiology is following. They did mention if she does not convert, possible cardioversion. We will also replace her potassium and follow up with lab in the morning as well as chest x-ray. The patient verbalized understanding and all questions answered to her satisfaction.
--- NOTE | 2017-10-17 08:47 | RAD ---
PORTABLE AP CHEST: Date: 10-17-17 History: Pneumonia. Comparison: 10-16-17 FINDINGS: Again noted are increased interstitial opacities within the lungs bilaterally and overall similar asy mmetric distribution compared to the prior exam. Cardiac silhouette is again magnified by projection but similar in size. There has been no other interval change compared to the prior exam. IMPRESSION: Asymmetric interstitial opacities within the lungs bilaterally which could be related to either asymm etric pulmonary edema or infectious process. Continued follow up is recommended. POS: [facility]
[2017-10-17] MEDS: Azithromycin 500 MG in Sodium Chloride 0.9% 250 ML 250 ML IVPB SCH (08:58)
[2017-10-17] MEDS: predniSONE 5 MG TAB PO SCH (09:00)
[2017-10-17] MEDS: Apixaban 5 MG TAB PO SCH ×2 (09:00→20:53)
[2017-10-17] MEDS: cefTRIAXone\\ROCEPHIN 1 GM, Syringe 0.4 ML in Sterile Water 9.6 ML SLOW IVP SCH (09:00)
[2017-10-17] MEDS: Aspirin 81 mg Enteric Coated Tablet PO SCH (09:00)
[2017-10-17] MEDS: Allopurinol 300 MG TAB PO SCH (09:00)
[2017-10-17] MEDS: Benzonatate 100 MG CAP PO PRN ×2 (09:05→16:54)
[2017-10-17] MEDS ORDERED: Potassium Chloride 20 MEQ TAB PO SCH (09:30)
--- NOTE | 2017-10-17 11:35 | PQF ---
CLINICAL DOCUMENTATION IMPROVEMENT CLARIFICATION FORM: ICD-10 Updated PLEASE DO AN ADDENDUM TO THE PROGRESS NOTE WITH ANY DOCUMENTATION UPDATES OR ADDITIONS AND CARRY THROUGH TO DC SUMMARY. THANK YOU. DATE: 10/17/17 ATTN: Dr. Mahin Chow 10/20/17 Please exercise your independent, professional judgment in responding to the clarification form. Clinical indicators are provided on the bottom of this form for your review Please check appropriate box(s): [ ] Acute Respiratory Failure: [ ] with Hypoxia [ ] with Hypercapnia [ x ] Acute On Chronic Respiratory Failure: [x ] with Hypoxia [ ] with Hypercapnia [ ] Acute Respiratory Failure due to: (etiology) [ ] Chronic Respiratory Failure only [ ] with Hypoxia [ ] with Hypercapnia [ x ] Other diagnosis ___interstitial lung disease [ ] Unable to determine In addition, please specify: Present on Admission (POA): [ x ] Yes [ ] No [ ] Unable to determine For continuity of documentation, please document condition throughout progress notes and discharge summary. Thank You. CLINICAL INDICATORS - SIGNS / SYMPTOMS / LABS ER RECORD: BP 158/108, PULSE 115, RESP 22, TEMP. 99.0, O2 SAT 90 ON 3L OXYGEN DX: A FIB W/ RVR. HYPOXIA, PNEUMONIA H&P: .OVER THE LAST FEW DAYS SHE NOTES WHEN SHE TOOK HER OXYGEN OFF HER O2 SAT WOULD DROP IN THE 70'S THE PT WAS FOUND TO HAVE BILATERAL PNEUMONIA RISKS: H&P: HX OF A LUNG DISORDER FOLLOWED BY DR. KUHN ON CHRONIC OXYGEN. ASSESSMENT: ATRIAL FIBRILLATION W/ RVR. PNEUMONIA TREATMENT: ORDER 10/16: NURSING: O2 TO KEEP SATS > 92% CPOE 10/16: ROCEPHIN 1 GM IV CPOE 10/16: ZITHROMAX 500MG IV Thank you, [employer] (This form is maintained as a part of the permanent medical record) 2015 [employer]. All Rights Reserved Libertad Redd RN, BSN [email or web address] Office: [phone] [facility] CENTERTammy
[2017-10-17] MEDS: ALPRAZolam 0.25 MG TAB PO PRN (11:56)
--- NOTE | 2017-10-17 15:23 | PDOC.CTH ---
Cardiology Progress Note - Subjective No new issues. Her breathing is similar to yesterday but mildly improved. - Objective Vital Signs Temp Pulse Resp BP Pulse Ox 10/17/17 13:19 92 L 10/17/17 12:30 98 20 10/17/17 11:19 97.8 F 91 20 129/74 90 L 10/17/17 07:00 98.2 F 84 18 115/58 L 87 L 10/17/17 04:00 98.3 F 90 18 126/68 93 L Weight 225 lb 10/16/17 10/17/17 10/18/17 06:59 06:59 06:59 Intake Total 370 Output Total 800 Balance -430 - Physical Examination General/Neuro: alert & oriented x3, NAD Neck: no JVD present Lungs: other: (crackles bilat. ) Heart: RRR Abdomen: NT/ND Extremities: + edema B (trace) - Telemetry Telemetry Rhythm: Afib HR 90's. - Labs Result Diagrams: 10/17/17 05:14 10/17/17 05:13 Troponin/CKMB CK-MB (CK-2) 1.0 ng/mL (0-6.6) 10/16/17 08:38 Troponin I Less than 0.010 ng/mL (< 0.028) 10/16/17 08:38 - Assessment/Plan 1. Chronic afib, rate controlled now. 2. Community acquired pneumonia 3. Interstitial lung disease. PLAN: - Will switch to PO diltiazem. - Abx per primary team. - Continue Eliquis. - Replace Aby
[2017-10-17] MEDS: Mirtazapine 30 MG TAB PO SCH (20:53)
[2017-10-17] MEDS: Rosuvastatin 10 MG TAB PO SCH (20:53)
[2017-10-17] MEDS: Diltiazem HCl SR 60 mg Capsule PO SCH (20:53)
[2017-10-18] MEDS: Benzonatate 100 MG CAP PO PRN (00:51)
[2017-10-18] MEDS: Levothyroxine Sodium 25 MCG TAB PO SCH (06:00)
--- NOTE | 2017-10-18 09:35 | PRG ---
DATE OF SERVICE: 10/18/2017 SUBJECTIVE: The patient is resting comfortably. She had a good night. There has no new complaints per staff. PHYSICAL EXAMINATION: VITAL SIGNS: Upon evaluation, blood pressure 140/80, pulse 108, respirations 18, temperature 96.9. NECK: Supple with no increased JVP. COR: Irregularly irregular. CHEST: Few scattered rhonchi. ABDOMEN: Soft, obese, nontender with normoactive bowel sounds. No bruit or organomegaly. EXTREMITIES: No edema or cyanosis. Palpable pedal pulses. SKIN: There is no evidence of ulcers, lesion, or rash. NEUROLOGIC: She is awake, alert, and oriented to person, place, and time. LABORATORY DATA: There is no CBC or CMP in the chart. ASSESSMENT: 1. Chronic atrial fibrillation. 2. Pneumonia. 3. Anxiety disorder. 4. Interstitial lung disease. 5. Hypokalemia. 6. Multiple medical problems. PLAN: 1. The patient's medication was switched to p.o. from the IV Cardizem. We will continue antibiotics . 2. The patient is hopefully be ready to go home in 2-3 days. The patient verbalized understanding a nd all questions answered to satisfaction. This is CHRISTEN Butcher dictating for Dr. Clint Chow.
[2017-10-18] MEDS: Azithromycin 500 MG in Sodium Chloride 0.9% 250 ML 250 ML IVPB SCH (09:50)
[2017-10-18] MEDS: Diltiazem HCl SR 60 mg Capsule PO SCH ×2 (09:51→22:25)
[2017-10-18] MEDS: Aspirin 81 mg Enteric Coated Tablet PO SCH (09:51)
[2017-10-18] MEDS: Allopurinol 300 MG TAB PO SCH (09:51)
[2017-10-18] MEDS: predniSONE 5 MG TAB PO SCH (09:51)
[2017-10-18] MEDS: Apixaban 5 MG TAB PO SCH ×2 (09:51→22:25)
[2017-10-18] MEDS: cefTRIAXone\\ROCEPHIN 1 GM, Syringe 0.4 ML in Sterile Water 9.6 ML SLOW IVP SCH (09:53)
[2017-10-18] MEDS: Diabetic Tussin DM 5 ML UDCUP PO PRN ×2 (14:13→22:38)
[2017-10-18] MEDS: Rosuvastatin 10 MG TAB PO SCH (22:25)
[2017-10-18] MEDS: Mirtazapine 30 MG TAB PO SCH (22:34)
[2017-10-19] MEDS: Diabetic Tussin DM 5 ML UDCUP PO PRN ×3 (04:59→21:23)
[2017-10-19] MEDS: ALPRAZolam 0.25 MG TAB PO PRN ×2 (05:01→21:04)
[2017-10-19] MEDS: Levothyroxine Sodium 25 MCG TAB PO SCH (05:01)
[2017-10-19] MEDS: Digoxin 0.5 MG/2 ML AMP SLOW IVP SCH ×2 (09:53→10:51)
[2017-10-19] MEDS: Diltiazem HCl SR 60 mg Capsule PO SCH ×2 (09:56→20:55)
[2017-10-19] MEDS: Allopurinol 300 MG TAB PO SCH (09:57)
[2017-10-19] MEDS: predniSONE 5 MG TAB PO SCH (09:57)
[2017-10-19] MEDS: Apixaban 5 MG TAB PO SCH ×2 (09:57→20:54)
[2017-10-19] MEDS: Aspirin 81 mg Enteric Coated Tablet PO SCH (09:57)
[2017-10-19] MEDS: cefTRIAXone\\ROCEPHIN 1 GM, Syringe 0.4 ML in Sterile Water 9.6 ML SLOW IVP SCH (09:58)
[2017-10-19] MEDS: Azithromycin 500 MG in Sodium Chloride 0.9% 250 ML 250 ML IVPB SCH (10:51)
[2017-10-19] MEDS ORDERED: Digoxin 0.25 MG TAB PO SCH (12:00)
--- NOTE | 2017-10-19 14:02 | PRG ---
DATE OF SERVICE: 10/19/2017 SUBJECTIVE: The patient had a good night. She thinks that the Yvanitussin is helping better than the Tessalon Perlnai. She is able to have a productive cough now and she is still coughing up mucus. Elizabeth angel was up in the chair yesterday. She is still sleeping a lot. PHYSICAL EXAMINATION: GENERAL: Upon evaluation, she is awake, alert, and oriented to person, place and time. VITAL SIGNS: Blood pressure 140/60, pulse 100, respirations 18, temperature 97.8. HEENT: Bilateral arcus senilis. There is no xanthelasma. NECK: Supple. JVD cannot be assessed. COR: Irregularly irregular, tachy rhythm. CHEST: Scattered rhonchi with few wheezing. ABDOMEN: Soft, obese, nontender with normoactive bowel sounds. No bruit or organomegaly. EXTREMITIES: No edema or cyanosis. Palpable pedal pulses. SKIN: There is no evidence of ulceration lesion, or rash. NEUROLOGIC: She is awake, alert, and oriented to person, place, and time. LABORATORY DATA: There is no CBC in the chart. ASSESSMENT: 1. Pneumonia. 2. Atrial fibrillation with rapid ventricular response. 3. General anxiety disorder. PLAN: We will follow up with a CBC, chest x-ray and CMP in the morning and hopefully if all is well changing her IV antibiotics to by mouth and hopefully go home in the next couple of days. The patien t verbalized understanding and all questions answered to satisfaction. This is CHRISTEN Butcher dictating a progress note for Clint Chow M.D.
--- NOTE | 2017-10-19 17:58 | RAD ---
CHEST ONE VIEW: History: Pneumonia. Comparison: 10-17-17 FINDINGS: There are chronic appearing interstitial opacities in the lung bases. There is also left upper lobe a irspace opacity which appears to be worsening. IMPRESSION: Findings concerning for background interstitial lung disease such as NSIP with superimposed left uppe r lobe pneumonia. POS: [facility]
[2017-10-19] MEDS: Rosuvastatin 10 MG TAB PO SCH (20:55)
[2017-10-19] MEDS: Mirtazapine 30 MG TAB PO SCH (20:55)
[2017-10-20] MEDS: Levothyroxine Sodium 25 MCG TAB PO SCH (05:55)
[2017-10-20 06:14] LABS: ALT (SGPT) 15 U/L (8-55); AST (SGOT) 13 U/L (5-34); Albumin 3.5 g/dL (3.4-4.8); Alkaline Phosphatase 92 U/L (40-150); Anion Gap 15 mmol/L (10-20); BUN (Urea Nitrogen) 9 mg/dL (9.8-20.1); Bilirubin, Total 0.4 mg/dL (0.2-1.2); Calc. Creatinine Clearance 94 mL/min (70-130); Calcium 9.4 mg/dL (7.8-10.44); Carbon Dioxide 30 mmol/L (23-31); Chloride 99 mmol/L (98-107); Estimated GFR-MDRD 71; Globulin 3.7 g/dL (2.4-3.5); Glucose 111 mg/dL (83-110); Potassium 3.2 mmol/L (3.5-5.1); Protein, Total 7.2 g/dL (6.0-8.3); Sodium 141 mmol/L (136-145)
[2017-10-20 06:32] LABS: #Eosinphils 0.2 thou/uL (0.0-0.7); #Neutrophils 6.3 thou/uL (1.40-6.50); %Basophils 0.1 % (0.0-1.0); %Eosinophils 1.7 % (0.0-10.0); %Lymphocytes 21.4 % (21.0-51.0); %Monocytes 10.2 % (0.0-10.0); %Neutrophils 66.5 % (42.0-75.0); Hemoglobin 12.7 g/dL (12.0-16.0); Mean Corpuscular HGB CONC 29.9 g/dL (32.0-36.0); Mean Corpuscular Hemoglobin 28.7 pg (27.0-31.0); Mean Corpuscular Volume 95.8 fl (81.0-99.0); Mean Platelet Volume 7.9 fL (7.4-10.4); Platelet Count 246 thou/uL (130-400); RBC Distribution Width 14.1 % (11.5-14.5); Red Blood Cell (RBC) Count 4.42 mill/uL (4.20-5.40); White Blood Cell (WBC) Count 9.5 thou/uL (4.8-10.8)
[2017-10-20] MEDS: predniSONE 5 MG TAB PO SCH (08:15)
[2017-10-20] MEDS: Aspirin 81 mg Enteric Coated Tablet PO SCH (08:15)
[2017-10-20] MEDS: Apixaban 5 MG TAB PO SCH ×2 (08:16→20:40)
[2017-10-20] MEDS: Diltiazem HCl SR 60 mg Capsule PO SCH ×2 (08:16→20:40)
[2017-10-20] MEDS: Digoxin 0.125 MG TAB PO SCH (08:16)
[2017-10-20] MEDS: Allopurinol 300 MG TAB PO SCH (08:16)
[2017-10-20] MEDS: Azithromycin 250 MG TAB PO SCH (09:53)
[2017-10-20] MEDS: Potassium Chloride 20 MEQ TAB PO SCH ×2 (09:53→20:40)
[2017-10-20] MEDS: Cefdinir 300 MG CAP PO SCH ×2 (09:53→20:40)
[2017-10-20] MEDS: Diabetic Tussin DM 5 ML UDCUP PO PRN ×2 (14:39→21:59)
[2017-10-20] MEDS: Rosuvastatin 10 MG TAB PO SCH (20:40)
[2017-10-20] MEDS: Mirtazapine 30 MG TAB PO SCH (20:40)
[2017-10-21] MEDS: Levothyroxine Sodium 25 MCG TAB PO SCH (05:38)
[2017-10-21 06:20] LABS: #Eosinphils 0.4 thou/uL (0.0-0.7); #Lymphocytes 1.5 thou/uL (1.20-3.40); #Monocytes 0.6 thou/uL (0.11-0.59); #Neutrophils 4.4 thou/uL (1.40-6.50); %Basophils 0.5 % (0.0-1.0); %Eosinophils 6.4 % (0.0-10.0); %Lymphocytes 21.7 % (21.0-51.0); %Monocytes 8.3 % (0.0-10.0); %Neutrophils 63.1 % (42.0-75.0); Hemoglobin 12.2 g/dL (12.0-16.0); Mean Corpuscular HGB CONC 30.9 g/dL (32.0-36.0); Mean Corpuscular Hemoglobin 29.7 pg (27.0-31.0); Mean Platelet Volume 7.4 fL (7.4-10.4); Platelet Count 224 thou/uL (130-400); Red Blood Cell (RBC) Count 4.11 mill/uL (4.20-5.40)
[2017-10-21 06:33] LABS: Anion Gap 12 mmol/L (10-20); BUN (Urea Nitrogen) 6 mg/dL (9.8-20.1); Calc. Creatinine Clearance 104 mL/min (70-130); Carbon Dioxide 36 mmol/L (23-31); Chloride 97 mmol/L (98-107); Estimated GFR-MDRD 81; Glucose 113 mg/dL (83-110); Potassium 3.3 mmol/L (3.5-5.1); Sodium 142 mmol/L (136-145)
--- NOTE | 2017-10-21 07:57 | PRG ---
DATE OF SERVICE: 10/21/2017 SUBJECTIVE: The patient had a good night. She is breathing better. The patient has not gotten up t o the chair or the bedside commode by herself. She states her daughter helps take care of her, but h er daughter does not live with her. I am really worried about her going home right now, as again, th e patient cannot get up by herself. However, the patient does refuse wanting to go to rehab. PHYSICAL EXAMINATION: GENERAL: Upon evaluation, she is awake. She is alert and oriented. She is on oxygen. VITAL SIGNS: Blood pressure is 170/78, pulse 90, respirations 18. She is afebrile. NECK: Supple with no increased JVP or carotid bruit. Carotid had good upstroke with no thyromegaly. COR: Irregularly irregular with variable first and second heart sound. CHEST: Wheezing. ABDOMEN: Soft, obese, nontender with normoactive bowel sounds. There is no bruit or organomegaly. EXTREMITIES: No edema or cyanosis. She had palpable pedal pulses. SKIN: There is no evidence of ulceration, lesion or rash. NEUROLOGIC: She is awake, alert, and oriented to person, place, and time. ASSESSMENT: 1. Pneumonia. 2. Pulmonary scarring. 3. Anxiety. 4. Obesity. 5. Hypertension. 6. Deconditioning and weakness. PLAN: 1. We will make sure the patient can get out of chair and to the commode by herself by physical plant manager apy evaluating. 2. We will also begin Norvasc 5 mg every day for her blood pressure. 3. I do not feel like the patient is ready to go home, neither does the patient, however, will reeva luate tomorrow and see how she is doing then. The patient verbalized understanding and all questions answered to her satisfaction.
[2017-10-21] MEDS: Allopurinol 300 MG TAB PO SCH (09:31)
[2017-10-21] MEDS: Aspirin 81 mg Enteric Coated Tablet PO SCH (09:31)
[2017-10-21] MEDS: predniSONE 5 MG TAB PO SCH (09:31)
[2017-10-21] MEDS: Digoxin 0.125 MG TAB PO SCH (09:31)
[2017-10-21] MEDS: Apixaban 5 MG TAB PO SCH ×2 (09:31→22:52)
[2017-10-21] MEDS: Diltiazem HCl SR 60 mg Capsule PO SCH ×2 (09:31→22:52)
[2017-10-21] MEDS: Cefdinir 300 MG CAP PO SCH ×2 (09:31→22:51)
[2017-10-21] MEDS: Azithromycin 250 MG TAB PO SCH (09:31)
[2017-10-21] MEDS: Potassium Chloride 20 MEQ TAB PO SCH ×2 (09:32→22:51)
[2017-10-21] MEDS ORDERED: Amlodipine 5 MG TAB PO SCH (10:00)
[2017-10-21] MEDS: Diabetic Tussin DM 5 ML UDCUP PO PRN ×2 (11:35→22:51)
[2017-10-21] MEDS ORDERED: Furosemide 40 MG/4 ML VIAL ONE (22:09)
[2017-10-21] MEDS: Mirtazapine 30 MG TAB PO SCH (22:51)
[2017-10-21] MEDS: Rosuvastatin 10 MG TAB PO SCH ×2 (22:51→22:58)
[2017-10-22] MEDS: Levothyroxine Sodium 25 MCG TAB PO SCH (05:24)
[2017-10-22] MEDS: Cefdinir 300 MG CAP PO SCH (08:22)
[2017-10-22] MEDS: Apixaban 5 MG TAB PO SCH (08:22)
[2017-10-22] MEDS: Digoxin 0.125 MG TAB PO SCH (08:22)
[2017-10-22] MEDS: Allopurinol 300 MG TAB PO SCH (08:22)
[2017-10-22] MEDS: predniSONE 5 MG TAB PO SCH (08:22)
[2017-10-22] MEDS: Diltiazem HCl SR 60 mg Capsule PO SCH (08:22)
[2017-10-22] MEDS: Aspirin 81 mg Enteric Coated Tablet PO SCH (08:22)
[2017-10-22] MEDS: Potassium Chloride 20 MEQ TAB PO SCH (08:22)
[2017-10-22] MEDS: Diabetic Tussin DM 5 ML UDCUP PO PRN (08:23)
[2017-10-22] MEDS ORDERED: Amlodipine 5 MG TAB PO SCH (09:00)
[2017-10-22] MEDS: Azithromycin 250 MG TAB PO SCH (09:50)
[2017-10-22 16:14] VITALS: BP 159/108; TEMP 98.8
--- NOTE | 2017-10-23 14:05 | DIS ---
CHIEF COMPLAINT ON ADMISSION: Shortness of breath and hypoxia. She is noted to be in atrial fibrillation with rapid ventricular response, have pneumonia and hypokalemia. She is placed on telemetry were Cardizem drip was continued. Cardiology consultation was sought. She sees Dr. Pedraza on an outpatient basis , but he does not attend [place]. We will continue her on IV antibiotics as well as DuoNebs. Dr. Pablo saw the patient in consultation on 10/16/2017. He agreed with the assessment with atrial fibrillation and RVR in the setting of chronic atrial fibrillation, acute community-acquired pneumonia and interstitial lung disease. He felt that the pneumonia was the reason for her RVR, he chose IV digoxin because he did not wish to lower her blood pressure and continued her Eliquis. By 10/17/2017 chest x-ray showed an asymmetric interstitial opacity within the lungs bilaterally which could be infectious or pulmonary edema. By 10/18/2017, she was resting comfortably. She had a good night. There were no new complaints. She has been afebrile with a pulse rate 108, temperature 96.9. She was switched from IV cortisone at this point to p.o. cortisone. On 10/19/2017 she had another good night, Robitussin was helping her cough better than Tessalon Perles. She has been finally getting up into a chair. She had some anxiety during this hospital stay. Repeat chest x- ray on 10/19/2017 showed nonspecific interstitial pneumonitis with left upper lobe pneumonia. By 10/21/2017 she was anxious, wheezing, deconditioned and needed more physical therapy. She was too weak to go home at this time and she refused to go to a rehab to help her get reconditioned. Some more emphasis was placed on her going to the bathroom by herself and getting stronger. Finally by 10/22/2017 she was alert, no new complaints. Vital signs stable. She was ready for discharge to a group home or skilled facility; however, the daughters were going to transport her home and to stay home with her. DISCHARGE MEDICATIONS: Omnicef 300 mg b.i.d., Lanoxin 0.125 mg daily, diltiazem 12-hour 180 mg b.i.d. dosage. She was staying on her Xanax p.r.n., Crestor and Zoloft. DISCHARGE DIAGNOSES: 1. Hypoxia due to 2. acute or chronic atrial fibrillation with rapid ventricular response, due to 3. community-acquired pneumonia. 4. She also mild deconditioning and weakness, 5. anxiety disorder and 6. hypertension. The time required to review the chart, examine the patient and answer all the patient's and her daughter's questions and to prepare the chart for discharge including writing prescriptions, complete medicinal reconciliation and dictation took 40 minutes. She is discharged in stable condition. Also, her medications were reconciled with her daughter. F/u in 1 week. TRENT
--- NOTE | 2017-10-23 19:43 | EKG ---
Test Reason : STAT Blood Pressure : / mmHG Vent. Rate : 137 BPM Atrial Rate : 108 BPM P-R Int : 000 ms QRS Dur : 076 ms QT Int : 342 ms P-R-T Axes : 000 -03 198 degrees QTc Int : 516 ms Atrial fibrillation with rapid ventricular response Abnormal ECG When compared with ECG of 16-OCT-2017 08:25, (Unconfirmed) Criteria for Septal infarct are no longer Present ST now depressed in Lateral leads T wave inversion no longer evident in Anterior leads Confirmed by MAGDALENA JONES (2) on 10/23/2017 7:42:45 PM Referred By: Confirmed By:MAGDALENA JONES
== END 2017-10-22 17:21 | disposition home health service (06) | DRG 193 ==
LOC: ERS 08:11 → ERHOLD 10:03 → 2NO 20:20
PROVIDERS: ADMIT Specialist; ATTEND Specialist
DX: J18.9 Pneumonia, unspecified organism (principal); J96.21 Acute and chronic respiratory failure with hypoxia; J84.9 Interstitial pulmonary disease, unspecified; I48.2 Chronic atrial fibrillation; Z99.81 Dependence on supplemental oxygen; F03.90 Unspecified dementia, unspecified severity, without behavioral disturbance, psychotic disturbance, mood disturbance, and anxiety; F41.1 Generalized anxiety disorder; E03.9 Hypothyroidism, unspecified; I10 Essential (primary) hypertension; K21.9 Gastro-esophageal reflux disease without esophagitis; F32.9 Major depressive disorder, single episode, unspecified; Z88.5 Allergy status to narcotic agent; Z88.0 Allergy status to penicillin; Z88.2 Allergy status to sulfonamides; E87.6 Hypokalemia; E78.5 Hyperlipidemia, unspecified; E66.9 Obesity, unspecified; Z68.38 Body mass index [BMI] 38.0-38.9, adult
CPT/HCPCS: 36415; 71045; 80048; 80053; 81003; 81015; 82553; 83605; 83880; 84484; 85025; 87040; 87070; 87086; 87205; 87804; 93005; 93010; 94640; 96361; 96365; 96366; 96375; 96376; A4216; G8978-GP-CL; G8979-GP-CK; J0456; J0696; J1160; J1940; J2930; J7050; J7620

== ENCOUNTER 2018-03-03 12:13 | Outpatient (CLI) | payer MEDICARE | END 2018-03-03 12:14 | disposition home or self-care (01) | LOC: BICRAD 12:13 | PROVIDERS: ATTEND Nurse Practitioner Family | DX: M47.894 Other spondylosis, thoracic region (principal); M47.892 Other spondylosis, cervical region; M25.50 Pain in unspecified joint | CPT/HCPCS: 72040; 72072 ==

== ENCOUNTER 2018-03-08 10:19 | Emergency (ER) | payer MEDICARE ==
[2018-03-08 12:08] LABS: Bilirubin Negative (Negative); Blood, Urine Negative (Negative); Clarity CLEAR (Clear); Glucose, Urine (Dipstick) Negative (Negative); Leukocyte Negative (Negative); Nitrite Negative (Negative); Protein, Urine (Dipstick) Negative (Neg-Trace); Specific Gravity, Urine 1.014 (1.002-1.036)
--- NOTE | 2018-03-08 12:43 | RAD ---
RIGHT RIBS 3 VIEWS CHEST 1 VIEW: HISTORY: Right flank and rib pain. The patient fell 2 weeks ago. FINDINGS: Atherosclerosis of the aorta. Stable borderline cardiac silhouette. Chronic changes of the lung par enchyma. No pleural effusion. No pneumothorax. No osseous abnormalities. RIGHT RIB RADIOGRAPH SERIES: No fracture. No cortical irregularity. No periosteal reaction. IMPRESSION: 1. Chronic changes of the lung parenchyma. No acute cardiopulmonary process. 2. No evidence of a right rib fracture. 3. Stable and presumed chronic change of the lung parenchyma. Persistent opacity in the left upper lobe. POS: [facility]
== END 2018-03-08 12:45 | disposition home or self-care (01) ==
LOC: ERS 10:19
DX: S20.212A Contusion of left front wall of thorax, initial encounter (principal); I48.91 Unspecified atrial fibrillation; E03.9 Hypothyroidism, unspecified; E78.5 Hyperlipidemia, unspecified; I10 Essential (primary) hypertension; F41.9 Anxiety disorder, unspecified; Z87.891 Personal history of nicotine dependence; Z79.899 Other long term (current) drug therapy; Z79.82 Long term (current) use of aspirin; W19.XXXA Unspecified fall, initial encounter
CPT/HCPCS: 81003; 87086

== ENCOUNTER 2018-03-11 10:52 | Outpatient (CLI) | payer MEDICARE | END 2018-03-11 10:53 | disposition home or self-care (01) | LOC: BICCT 10:52 | PROVIDERS: ATTEND Nurse Practitioner Family | DX: M81.0 Age-related osteoporosis without current pathological fracture (principal); M40.204 Unspecified kyphosis, thoracic region; M54.9 Dorsalgia, unspecified | CPT/HCPCS: 72128 ==

== ENCOUNTER 2019-10-14 13:11 | Inpatient (IN) | payer MEDICARE ==
[~2019-10-14 13:11] MED LIST: Iopamidol-370 76% 500 ML 1 ML ONE
[2019-10-14 13:55] LABS: #Lymphocytes 1.5 thou/uL (1.20-3.40); #Monocytes 0.7 thou/uL (0.11-0.59); #Neutrophils 4.7 thou/uL (1.40-6.50); %Basophils 0.4 % (0.0-1.0); %Eosinophils 0.2 % (0.0-10.0); %Lymphocytes 21.4 % (21.0-51.0); %Monocytes 9.5 % (0.0-10.0); %Neutrophils 68.6 % (42.0-75.0); Hemoglobin 15.1 g/dL (12.0-16.0); Mean Corpuscular HGB CONC 32.9 g/dL (32.0-36.0); Mean Corpuscular Hemoglobin 30.3 pg (27.0-31.0); Platelet Count 169 thou/uL (130-400); RBC Distribution Width 13.1 % (11.5-14.5); Red Blood Cell (RBC) Count 4.97 mill/uL (4.20-5.40); White Blood Cell (WBC) Count 6.9 thou/uL (4.8-10.8)
[2019-10-14] MEDS ORDERED: Piperacillin/Tazobactam 4.5 GM VIAL ONE (14:05)
[2019-10-14] MEDS ORDERED: Acetaminophen 500 MG TAB ONE (14:05)
[2019-10-14] MEDS ORDERED: Ondansetron PF 4 MG/2 ML Vial ONE (14:07)
--- NOTE | 2019-10-14 14:07 | RAD ---
XR Chest 1 View Portable HISTORY: Nausea and vomiting COMPARISON: 10/19/2017 FINDINGS: The heart size is enlarged and stable. The aorta is tortuous. There is pulmonary vascular c ongestion. No pneumothoraces or large effusions are seen.
[2019-10-14 14:17] LABS: Bacteria/HPF 2+ HPF (None Seen); Bilirubin 1+ (Negative); Blood, Urine 2+ (Negative); Clarity Turbid (Clear); Glucose, Urine (Dipstick) Normal (Negative); Leukocyte Negative Leu/uL (Negative); Nitrite Negative (Negative); Protein, Urine (Dipstick) 200 mg/dL (Neg-Trace); Squamous Epithelial 0-3 HPF (0-3)
[2019-10-14 14:25] LABS: ALT (SGPT) 16 U/L (8-55); AST (SGOT) 25 U/L (5-34); Albumin 4.2 g/dL (3.4-4.8); Alkaline Phosphatase 99 U/L (40-110); Anion Gap 16 mmol/L (10-20); BUN (Urea Nitrogen) 18 mg/dL (9.8-20.1); Bilirubin, Total 0.6 mg/dL (0.2-1.2); CK (CPK) 72 U/L (29-168); Calc. Creatinine Clearance 0 mL/min (70-130); Carbon Dioxide 25 mmol/L (23-31); Chloride 94 mmol/L (98-107); Estimated GFR-MDRD 44; Globulin 3.9 g/dL (2.4-3.5); Glucose 126 mg/dL (83-110); Lipase 23 U/L (8-78); Magnesium 1.8 mg/dL (1.6-2.6); Potassium 3.7 mmol/L (3.5-5.1); Protein, Total 8.1 g/dL (6.0-8.3); Sodium 131 mmol/L (136-145)
--- NOTE | 2019-10-14 15:11 | CT ---
CT ABDOMEN AND PELVIS WITH IV CONTRAST: HISTORY: Nausea, vomiting, diarrhea, lower abdominal pain. COMPARISON: 12/21/2014. FINDINGS: Chronic changes in the lung bases are again seen. The patient is post cholecystectomy. The liver, s pleen, pancreas, adrenal glands, and kidneys are normal. No free air, free fluid, or lymphadenopathy is seen in the abdomen or pelvis. There are vascular jalil cifications without evidence of aneurysmal dilatation of the abdominal aorta. There are degenerative changes with scoliosis of the spine. Postop changes and metallic hardware in the right hip are agai n noted. The small bowel loops are not abnormally dilated. There is colonic diverticulosis. No pericolonic i nflammatory change is seen to suggest diverticulitis. There is fluid in the distended low-lying cecu m (within the right side of the pelvis). Appendix is normal. Fluid is also seen in the rectosigmoid . There is a ventral hernia containing a nonobstructing loop of transverse colon. IMPRESSION: 1. No acute process. 2. Colonic diverticulosis. 3. Ventral hernia containing a loop of transverse colon. POS: [facility]
[2019-10-14] MEDS ORDERED: Ondansetron ODT 4 MG TAB SL PRN (19:54)
[2019-10-14] MEDS ORDERED: Ondansetron PF 4 MG/2 ML Vial IVP PRN (19:54)
[2019-10-14] MEDS ORDERED: Sodium Chloride 0.9% 1,000 ML IV SCH (20:00)
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
[2019-10-14 20:27] VITALS: BMI 33.3
[2019-10-15] MEDS ORDERED: Ondansetron ODT 4 MG TAB PO PRN (00:59)
[2019-10-15] MEDS: Dextrose 5 % And 0.9 % NaCl 1,000 ML IV SCH ×2 (01:11→10:01)
[2019-10-15] MEDS ORDERED: Oseltamivir 75 MG CAP PO SCH (01:15)
[2019-10-15] MEDS ORDERED: Metoprolol Tartrate 100 MG TAB PO SCH (01:15)
[2019-10-15 05:26] LABS: #Lymphocytes 0.8 thou/uL (1.20-3.40); #Monocytes 0.4 thou/uL (0.11-0.59); #Neutrophils 2.8 thou/uL (1.40-6.50); %Basophils 0.5 % (0.0-1.0); %Eosinophils 0.5 % (0.0-10.0); %Lymphocytes 20.4 % (21.0-51.0); %Monocytes 9.3 % (0.0-10.0); %Neutrophils 69.2 % (42.0-75.0); Hemoglobin 12.4 g/dL (12.0-16.0); Mean Corpuscular HGB CONC 33.1 g/dL (32.0-36.0); Mean Corpuscular Hemoglobin 30.4 pg (27.0-31.0); Mean Corpuscular Volume 91.9 fL (78.0-98.0); Mean Platelet Volume 8.9 fL (7.4-10.4); Platelet Count 122 thou/uL (130-400); RBC Distribution Width 12.9 % (11.5-14.5); Red Blood Cell (RBC) Count 4.09 mill/uL (4.20-5.40)
[2019-10-15 05:48] LABS: Anion Gap 12 mmol/L (10-20); BUN (Urea Nitrogen) 14 mg/dL (9.8-20.1); Calc. Creatinine Clearance 67 mL/min (70-130); Carbon Dioxide 23 mmol/L (23-31); Cardiac Risk 4.7 (Less than 4.5); Chloride 103 mmol/L (98-107); Cholesterol 128 mg/dl (< 200 Desired); Digoxin Less than 0.15 ng/mL (0.8-2.0); Estimated GFR-MDRD 62; Glucose 136 mg/dL (83-110); HDL Cholesterol 27 mg/dL (>60 Neg Risk); LDL Cholesterol, Calculated 80 mg/dL; Potassium 3.5 mmol/L (3.5-5.1); Sodium 134 mmol/L (136-145); Triglycerides 105 mg/dL (Less than 150)
[2019-10-15] MEDS: Ondansetron ODT 4 MG TAB PO SCH ×3 (06:22→17:03)
[2019-10-15] MEDS: Levothyroxine Sodium 50 MCG TAB PO SCH (06:22)
[2019-10-15] MEDS: Digoxin 0.125 MG TAB PO SCH (08:19)
[2019-10-15] MEDS: Apixaban 5 MG TAB PO SCH (08:19)
[2019-10-15] MEDS: Metoprolol Tartrate 100 MG TAB PO SCH ×2 (08:19→21:05)
[2019-10-15] MEDS: Oseltamivir 75 MG CAP PO SCH ×2 (08:19→21:06)
[2019-10-15] MEDS: Diphenoxylate HCl/Atropine Tablet PO SCH ×4 (08:21→21:05)
[2019-10-15] MEDS: Acetaminophen 500 MG TAB PO PRN ×2 (10:12→21:05)
[2019-10-15] MEDS ORDERED: Albuterol Sulfate 1.25 MG/3 ML NEB NEB PRN (16:25)
[2019-10-15] MEDS ORDERED: Benzonatate 100 MG CAP PO SCH (16:30)
[2019-10-15] MEDS ORDERED: Levalbuterol HCl 0.63 MG/3 ML NEB NEB PRN (16:43)
--- NOTE | 2019-10-15 16:58 | RAD ---
PORTABLE CHEST ONE VIEW: 10/15/19 at 4:52 p.m. HISTORY: Decrease in oxygen saturation, increasing congestion. FINDINGS/IMPRESSION: Comparison is made with the exam of previous day. The heart size is enlarged. The aorta is tortuous. There is pulmonary vascular congestion with mild interval worsening since the last exam. No pneumothoraces or large effusions are seen. POS: [facility]
[2019-10-15] MEDS ORDERED: diphenhydrAMINE 50 MG/ML VIAL ONE (17:29)
[2019-10-15] MEDS ORDERED: Furosemide 40 MG/4 ML VIAL ONE (17:29)
[2019-10-15] MEDS ORDERED: diphenhydrAMINE 50 MG/ML VIAL IVP PRN (17:37)
[2019-10-15] MEDS ORDERED: Furosemide 20 MG/2 ML VIAL SLOW IVP SCH (17:45)
[2019-10-15] MEDS: Zolpidem Tartrate 5 MG TAB PO SCH (21:05)
[2019-10-15] MEDS: Benzonatate 100 MG CAP PO PRN (21:05)
[2019-10-15] MEDS: cefTRIAXone\\ROCEPHIN 1 GM in Sodium Chloride 0.9% 100 ML IVPB SCH (21:14)
[2019-10-16 05:31] LABS: #Eosinphils 0.1 thou/uL (0.0-0.7); #Lymphocytes 1.6 thou/uL (1.20-3.40); #Monocytes 0.5 thou/uL (0.11-0.59); #Neutrophils 2.6 thou/uL (1.40-6.50); %Basophils 0.5 % (0.0-1.0); %Eosinophils 2.5 % (0.0-10.0); %Lymphocytes 33.2 % (21.0-51.0); %Monocytes 10.4 % (0.0-10.0); %Neutrophils 53.4 % (42.0-75.0); Hemoglobin 13.5 g/dL (12.0-16.0); Mean Corpuscular HGB CONC 33.8 g/dL (32.0-36.0); Mean Corpuscular Hemoglobin 31.7 pg (27.0-31.0); Mean Corpuscular Volume 93.7 fL (78.0-98.0); Platelet Count 103 thou/uL (130-400); Red Blood Cell (RBC) Count 4.27 mill/uL (4.20-5.40); White Blood Cell (WBC) Count 4.9 thou/uL (4.8-10.8)
[2019-10-16 05:41] LABS: Anion Gap 13 mmol/L (10-20); BUN (Urea Nitrogen) 11 mg/dL (9.8-20.1); Calc. Creatinine Clearance 62 mL/min (70-130); Calcium 8.2 mg/dL (7.8-10.44); Carbon Dioxide 24 mmol/L (23-31); Chloride 101 mmol/L (98-107); Estimated GFR-MDRD 57; Glucose 96 mg/dL (83-110); Potassium 3.4 mmol/L (3.5-5.1); Sodium 135 mmol/L (136-145)
[2019-10-16] MEDS: Ondansetron ODT 4 MG TAB PO SCH ×3 (06:12→17:03)
[2019-10-16] MEDS: Levothyroxine Sodium 50 MCG TAB PO SCH (06:12)
[2019-10-16] MEDS: Acetaminophen 500 MG TAB PO PRN (09:57)
[2019-10-16] MEDS: cefTRIAXone\\ROCEPHIN 1 GM in Sodium Chloride 0.9% 100 ML IVPB SCH ×2 (09:57→20:46)
[2019-10-16] MEDS: Digoxin 0.125 MG TAB PO SCH (09:57)
[2019-10-16] MEDS: Oseltamivir 75 MG CAP PO SCH ×2 (09:58→20:45)
[2019-10-16] MEDS: Diphenoxylate HCl/Atropine Tablet PO SCH ×4 (09:58→20:47)
[2019-10-16] MEDS: Metoprolol Tartrate 100 MG TAB PO SCH ×2 (09:58→20:45)
[2019-10-16] MEDS: Apixaban 5 MG TAB PO SCH (09:58)
[2019-10-16] MEDS: Benzonatate 100 MG CAP PO PRN (10:05)
[2019-10-16] MEDS ORDERED: Sodium Chloride For Inhalation 0.9% 3 ML NEB NEB PRN (11:52)
[2019-10-17] MEDS: Zolpidem Tartrate 5 MG TAB PO SCH ×2 (00:31→20:05)
[2019-10-17] MEDS: Benzonatate 100 MG CAP PO PRN ×2 (02:08→16:13)
[2019-10-17 05:14] LABS: #Eosinphils 0.1 thou/uL (0.0-0.7); #Lymphocytes 2.2 thou/uL (1.20-3.40); #Monocytes 0.5 thou/uL (0.11-0.59); #Neutrophils 3.6 thou/uL (1.40-6.50); %Eosinophils 1.5 % (0.0-10.0); %Lymphocytes 33.9 % (21.0-51.0); %Neutrophils 56.7 % (42.0-75.0); Hemoglobin 12.8 g/dL (12.0-16.0); Mean Corpuscular HGB CONC 34.8 g/dL (32.0-36.0); Mean Corpuscular Hemoglobin 32.5 pg (27.0-31.0); Mean Corpuscular Volume 93.5 fL (78.0-98.0); Mean Platelet Volume 9.2 fL (7.4-10.4); Platelet Count 129 thou/uL (130-400); RBC Distribution Width 13.1 % (11.5-14.5); Red Blood Cell (RBC) Count 3.94 mill/uL (4.20-5.40); White Blood Cell (WBC) Count 6.4 thou/uL (4.8-10.8)
[2019-10-17] MEDS: Levothyroxine Sodium 50 MCG TAB PO SCH (06:17)
[2019-10-17] MEDS: Ondansetron ODT 4 MG TAB PO SCH ×3 (08:36→16:06)
[2019-10-17] MEDS: Apixaban 5 MG TAB PO SCH (08:36)
[2019-10-17] MEDS: cefTRIAXone\\ROCEPHIN 1 GM in Sodium Chloride 0.9% 100 ML IVPB SCH ×2 (08:37→20:06)
[2019-10-17] MEDS: Metoprolol Tartrate 100 MG TAB PO SCH ×2 (08:37→20:05)
[2019-10-17] MEDS: Oseltamivir 75 MG CAP PO SCH ×2 (08:37→20:05)
[2019-10-17] MEDS: Digoxin 0.125 MG TAB PO SCH (08:37)
[2019-10-17] MEDS: Diphenoxylate HCl/Atropine Tablet PO SCH ×4 (08:38→20:05)
--- NOTE | 2019-10-17 13:13 | RAD ---
Chest 2 views HISTORY: Dyspnea. COMPARISON: 10/15/2019. Findings cardiac silhouette is upper limits of normal. Remains engorged. Widespread reticulonodular i nterstitial prominence is also unchanged. Right hemidiaphragm is less well defined on the frontal view. Mediastinum is midline. No evidence of pneumothorax. IMPRESSION: Develop pain ill-defined parenchymal opacity at the right lung base. Consider right lower lobe pneumonitis. Pulmonary vascular congestion otherwise stable. Please consider continued radiographic follow-up.
[2019-10-17] MEDS: Azithromycin 500 MG in Sodium Chloride 0.9% 250 ML 250 ML IVPB SCH (13:23)
[2019-10-17] MEDS: Sodium Chloride For Inhalation 0.9% 3 ML NEB NEB SCH ×2 (14:04→18:58)
[2019-10-18 05:07] LABS: #Eosinphils 0.2 thou/uL (0.0-0.7); #Lymphocytes 1.6 thou/uL (1.20-3.40); #Monocytes 0.7 thou/uL (0.11-0.59); #Neutrophils 5.3 thou/uL (1.40-6.50); %Basophils 0.5 % (0.0-1.0); %Eosinophils 3.2 % (0.0-10.0); %Lymphocytes 20.1 % (21.0-51.0); %Monocytes 9.1 % (0.0-10.0); %Neutrophils 67.2 % (42.0-75.0); Hemoglobin 12.8 g/dL (12.0-16.0); Mean Corpuscular Hemoglobin 31.7 pg (27.0-31.0); Mean Corpuscular Volume 93.2 fL (78.0-98.0); Mean Platelet Volume 9.2 fL (7.4-10.4); Platelet Count 124 thou/uL (130-400); RBC Distribution Width 13.1 % (11.5-14.5); Red Blood Cell (RBC) Count 4.04 mill/uL (4.20-5.40); White Blood Cell (WBC) Count 7.8 thou/uL (4.8-10.8)
[2019-10-18] MEDS: Levothyroxine Sodium 50 MCG TAB PO SCH (05:45)
[2019-10-18] MEDS: Ondansetron ODT 4 MG TAB PO SCH ×3 (05:46→17:14)
[2019-10-18] MEDS: Benzonatate 100 MG CAP PO PRN ×3 (05:50→20:48)
[2019-10-18] MEDS: Sodium Chloride For Inhalation 0.9% 3 ML NEB NEB SCH ×4 (06:57→19:35)
[2019-10-18] MEDS ORDERED: Milk Of Magnesia 30 ML UDCUP PO PRN (07:59)
[2019-10-18] MEDS: cefTRIAXone\\ROCEPHIN 1 GM in Sodium Chloride 0.9% 100 ML IVPB SCH ×2 (08:07→20:14)
[2019-10-18] MEDS: Metoprolol Tartrate 100 MG TAB PO SCH ×2 (08:10→20:15)
[2019-10-18] MEDS: Digoxin 0.125 MG TAB PO SCH (08:10)
[2019-10-18] MEDS: Diphenoxylate HCl/Atropine Tablet PO SCH ×4 (08:10→20:14)
[2019-10-18] MEDS: Oseltamivir 75 MG CAP PO SCH ×2 (08:10→20:15)
[2019-10-18] MEDS: Apixaban 5 MG TAB PO SCH (08:11)
[2019-10-18] MEDS: Docusate 100 MG CAP PO SCH ×2 (08:21→20:14)
[2019-10-18] MEDS: methylPREDNISolone Sod Succ/PF 125 MG/2 ML VIAL IVP SCH ×3 (12:23→23:28)
[2019-10-18] MEDS: Azithromycin 500 MG in Sodium Chloride 0.9% 250 ML 250 ML IVPB SCH (14:27)
--- NOTE | 2019-10-18 15:26 | CON ---
DATE OF CONSULTATION: HISTORY OF PRESENT ILLNESS: Ya Mcnair is an 84-year-old female, who was admitted to the hospital 10/17/19, with diagnosis of cough and shortness of breath. Shewas addmited with dehydration and apparently flu, type B was diagnosed. She has been on Tamiflu. It is unclear why we have been consulted today, but she has seen Dr. Bah in our office before. He says she is feeling better. She got a cough, which is nonproductive. Denies any fever or chills this morning. PAST MEDICAL HISTORY: Otherwise, pertinent for previous atrial fibrillation, hypothyroidism, dementia, depression, COPD, and chronic bronchitis. PAST SURGICAL HISTORY: Including hysterectomy, left forearm fracture. ALLERGIES: CODEINE, LISINOPRIL, PENICILLIN, AND SULFA. SOCIAL HISTORY: Tobacco, none. Alcohol, none. REVIEW OF SYSTEMS: Otherwise, 10-point negative. PHYSICAL EXAMINATION: GENERAL: On examination, she appears to be in no acute distress. VITAL SIGNS: Her blood pressure is 123/65, temperature 98, pulse 80, respiratory rate 24, and saturations 91% on 4 L. CHEST: Bilateral rhonchi and crackles. There is no wheezing. CARDIAC: Normal S1 and S2. No gallops. ABDOMEN: No masses. LABORATORY DATA: White count is only 7000. So far, all cultures are negative. Her chemistry profile shows lytes are normal. IMAGING DATA: X-ray shows chronic scarring, bronchitis, influenza B, on Tamiflu. PLAN: She can be switched over to oral antibiotics. Persistent cough, add low- dose steroids to her regimen. We will notify Dr. Bah. Disposition as per primary care physician. Hopefully home in the next several days. Consultation note, 70 minutes, 50% direct patient care. Job ID: [id number] [facility]
[2019-10-18] MEDS: Zolpidem Tartrate 5 MG TAB PO SCH (20:15)
[2019-10-19] MEDS: methylPREDNISolone Sod Succ/PF 125 MG/2 ML VIAL IVP SCH ×4 (05:21→23:36)
[2019-10-19] MEDS: Levothyroxine Sodium 50 MCG TAB PO SCH (05:21)
[2019-10-19] MEDS: Ondansetron ODT 4 MG TAB PO SCH ×3 (05:21→17:35)
[2019-10-19 05:40] LABS: #Lymphocytes 0.7 thou/uL (1.20-3.40); #Monocytes 0.1 thou/uL (0.11-0.59); #Neutrophils 1.7 thou/uL (1.40-6.50); %Eosinophils 0.5 % (0.0-10.0); %Lymphocytes 26.6 % (21.0-51.0); %Monocytes 4.5 % (0.0-10.0); %Neutrophils 68.4 % (42.0-75.0); Hemoglobin 12.7 g/dL (12.0-16.0); Mean Corpuscular HGB CONC 33.7 g/dL (32.0-36.0); Mean Corpuscular Hemoglobin 30.9 pg (27.0-31.0); Mean Corpuscular Volume 91.8 fL (78.0-98.0); Mean Platelet Volume 9.6 fL (7.4-10.4); Platelet Count 170 thou/uL (130-400); RBC Distribution Width 12.6 % (11.5-14.5); White Blood Cell (WBC) Count 2.5 thou/uL (4.8-10.8)
[2019-10-19] MEDS: Sodium Chloride For Inhalation 0.9% 3 ML NEB NEB SCH ×4 (07:47→18:49)
[2019-10-19] MEDS: Benzonatate 100 MG CAP PO PRN ×2 (08:58→20:46)
[2019-10-19] MEDS: Apixaban 5 MG TAB PO SCH (08:59)
[2019-10-19] MEDS: Digoxin 0.125 MG TAB PO SCH (08:59)
[2019-10-19] MEDS: Metoprolol Tartrate 100 MG TAB PO SCH ×2 (08:59→20:46)
[2019-10-19] MEDS: Docusate 100 MG CAP PO SCH ×2 (09:00→20:46)
[2019-10-19] MEDS: Oseltamivir 75 MG CAP PO SCH ×2 (09:00→20:46)
[2019-10-19] MEDS: cefTRIAXone\\ROCEPHIN 1 GM in Sodium Chloride 0.9% 100 ML IVPB SCH ×2 (09:00→20:45)
[2019-10-19] MEDS: Diphenoxylate HCl/Atropine Tablet PO SCH ×4 (09:02→20:46)
--- NOTE | 2019-10-19 11:10 | RAD ---
2 view chest: [10/19/2019] Comparison:10/17/2019 and 10/14/2019 HISTORY: Short of breath FINDINGS: Diffuse coarse increased linear interstitial density noted bilaterally. No pneumothorax or large volume pleural effusion. There is hazy area of new focal increased density within the right lung base, slightly more prominent than on the 10/17/2019 examination and new when compared to the 10/14/2019 examination. IMPRESSION: New focal density in right lung base which may signify aspiration or infectious pneumonit is. Short-term follow-up imaging of the chest advised following treatment to document resolution.
[2019-10-19] MEDS: Azithromycin 500 MG in Sodium Chloride 0.9% 250 ML 250 ML IVPB SCH (13:06)
[2019-10-19] MEDS: Zolpidem Tartrate 5 MG TAB PO SCH (20:46)
[2019-10-20 05:34] LABS: #Lymphocytes 0.7 thou/uL (1.20-3.40); #Monocytes 0.2 thou/uL (0.11-0.59); #Neutrophils 5.2 thou/uL (1.40-6.50); %Basophils 0.1 % (0.0-1.0); %Eosinophils 0.2 % (0.0-10.0); %Monocytes 3.9 % (0.0-10.0); %Neutrophils 84.9 % (42.0-75.0); Hemoglobin 13.6 g/dL (12.0-16.0); Mean Corpuscular HGB CONC 33.3 g/dL (32.0-36.0); Mean Corpuscular Hemoglobin 30.7 pg (27.0-31.0); Mean Corpuscular Volume 92.4 fL (78.0-98.0); Mean Platelet Volume 9.2 fL (7.4-10.4); Platelet Count 232 thou/uL (130-400); RBC Distribution Width 12.8 % (11.5-14.5); Red Blood Cell (RBC) Count 4.44 mill/uL (4.20-5.40); White Blood Cell (WBC) Count 6.2 thou/uL (4.8-10.8)
[2019-10-20] MEDS: Ondansetron ODT 4 MG TAB PO SCH ×3 (05:39→17:40)
[2019-10-20] MEDS: Levothyroxine Sodium 50 MCG TAB PO SCH (05:39)
[2019-10-20] MEDS: methylPREDNISolone Sod Succ/PF 125 MG/2 ML VIAL IVP SCH (05:39)
[2019-10-20] MEDS: Benzonatate 100 MG CAP PO PRN ×2 (05:43→20:50)
[2019-10-20] MEDS: Sodium Chloride For Inhalation 0.9% 3 ML NEB NEB SCH ×4 (07:40→19:06)
[2019-10-20] MEDS: Metoprolol Tartrate 100 MG TAB PO SCH ×2 (08:22→20:50)
[2019-10-20] MEDS: cefTRIAXone\\ROCEPHIN 1 GM in Sodium Chloride 0.9% 100 ML IVPB SCH ×2 (08:22→20:49)
[2019-10-20] MEDS: Oseltamivir 75 MG CAP PO SCH ×2 (08:22→20:50)
[2019-10-20] MEDS: Apixaban 5 MG TAB PO SCH (08:22)
[2019-10-20] MEDS: Diphenoxylate HCl/Atropine Tablet PO SCH ×4 (08:23→20:50)
[2019-10-20] MEDS: Docusate 100 MG CAP PO SCH ×2 (08:24→20:50)
[2019-10-20] MEDS: Digoxin 0.125 MG TAB PO SCH (08:26)
[2019-10-20] MEDS ORDERED: methylPREDNISolone Sod Succ/PF 125 MG/2 ML VIAL IVP SCH (12:00)
[2019-10-20] MEDS: Azithromycin 500 MG in Sodium Chloride 0.9% 250 ML 250 ML IVPB SCH (15:44)
--- NOTE | 2019-10-20 16:18 | PQF ---
CLINICAL DOCUMENTATION IMPROVEMENT CLARIFICATION FORM: ICD-10 Updated PLEASE DO AN ADDENDUM TO THE PROGRESS NOTE WITH ANY DOCUMENTATION UPDATES OR ADDITIONS AND CARRY THROUGH TO DC SUMMARY. THANK YOU. DATE: 10/20/2019 ATTN: Dr. Chow Please exercise your independent, professional judgment in responding to the clarification form. Clinical indicators are provided on the bottom of this form for your review Please check appropriate box(s): [ x ] Acute Respiratory Failure: [ x ] with Hypoxia [ ] with Hypercapnia [ ] Acute On Chronic Respiratory Failure: [ ] with Hypoxia [ ] with Hypercapnia [ x ] Acute Respiratory Failure due to: (etiology) ____Pneumonia [ ] Chronic Respiratory Failure only [ ] with Hypoxia [ ] with Hypercapnia [ ] Other diagnosis [ ] Unable to determine In addition, please specify: Present on Admission (POA): [ ] Yes [ ] No [ x ] Unable to determine For continuity of documentation, please document condition throughout progress notes and discharge summary. Thank You. CLINICAL INDICATORS - SIGNS / SYMPTOMS / LABS / RESULTS AND LOCATION IN MR ER Record 10/14: VS: BP 137/85, Resp. 24, Pulse 128, O2 sat 93 on 2L oxygen DX: Influenza pn 10/16: Hypoxia 87% 10/18 ([place]) respiratory rate 24, and saturations 91% on 4 L pn 10/20: pO2 90's RLL Pneumonia (?Aspiration) Hypoxia - persist RISKS: H&P 10/14: 84 YO with PMH HTN, scarred lungs. mild dementia. pn 10/20: RLL Pneumonia (?Aspiration); Flu B ; hypoxia - persist TREATMENT: Pulmonary Consult Ordered 10/18 Order 10/18-10/20: IV Solu-Medrol q6 hrs Order 10/17: Resp: O2 to keep sats continuous 92% Thank you, Libertad. (This form is maintained as a part of the permanent medical record) 2014 [employer]. All Rights Reserved Libertad Redd RN, BSN [email or web address] Office: [phone] [facility]
[2019-10-20] MEDS: Zolpidem Tartrate 5 MG TAB PO SCH (20:50)
[2019-10-21] MEDS: methylPREDNISolone Sod Succ 40 MG VIAL IVP SCH ×2 (00:59→12:27)
[2019-10-21 05:34] LABS: #Lymphocytes 0.7 thou/uL (1.20-3.40); #Monocytes 0.3 thou/uL (0.11-0.59); #Neutrophils 5.9 thou/uL (1.40-6.50); %Basophils 0.1 % (0.0-1.0); %Eosinophils 0.2 % (0.0-10.0); %Lymphocytes 10.6 % (21.0-51.0); %Monocytes 4.6 % (0.0-10.0); %Neutrophils 84.5 % (42.0-75.0); Hemoglobin 13.1 g/dL (12.0-16.0); Mean Corpuscular HGB CONC 33.5 g/dL (32.0-36.0); Mean Corpuscular Hemoglobin 31.3 pg (27.0-31.0); Mean Corpuscular Volume 93.5 fL (78.0-98.0); Mean Platelet Volume 8.6 fL (7.4-10.4); Platelet Count 279 thou/uL (130-400); RBC Distribution Width 12.9 % (11.5-14.5); Red Blood Cell (RBC) Count 4.17 mill/uL (4.20-5.40)
[2019-10-21 05:52] LABS: Anion Gap 11 mmol/L (10-20); BUN (Urea Nitrogen) 16 mg/dL (9.8-20.1); Calc. Creatinine Clearance 78 mL/min (70-130); Calcium 8.8 mg/dL (7.8-10.44); Carbon Dioxide 35 mmol/L (23-31); Chloride 98 mmol/L (98-107); Estimated GFR-MDRD 74; Glucose 136 mg/dL (83-110); Potassium 3.5 mmol/L (3.5-5.1); Sodium 140 mmol/L (136-145)
[2019-10-21] MEDS: Levothyroxine Sodium 50 MCG TAB PO SCH (06:04)
[2019-10-21] MEDS: Ondansetron ODT 4 MG TAB PO SCH ×3 (06:06→14:29)
[2019-10-21] MEDS: Sodium Chloride For Inhalation 0.9% 3 ML NEB NEB SCH ×4 (07:10→19:09)
[2019-10-21] MEDS: Metoprolol Tartrate 100 MG TAB PO SCH ×2 (08:50→20:32)
[2019-10-21] MEDS: Azithromycin 250 MG TAB PO SCH (08:50)
[2019-10-21] MEDS: Cefdinir 300 MG CAP PO SCH ×2 (08:50→20:32)
[2019-10-21] MEDS: Docusate 100 MG CAP PO SCH ×2 (08:50→20:32)
[2019-10-21] MEDS: guaiFENesin ER 600 MG TAB PO SCH ×2 (08:50→20:31)
[2019-10-21] MEDS: Oseltamivir 75 MG CAP PO SCH ×2 (08:50→20:32)
[2019-10-21] MEDS: Digoxin 0.125 MG TAB PO SCH (08:50)
[2019-10-21] MEDS: Diphenoxylate HCl/Atropine Tablet PO SCH ×4 (08:51→20:32)
[2019-10-21] MEDS: Apixaban 5 MG TAB PO SCH (08:52)
[2019-10-21] MEDS ORDERED: Azithromycin 250 MG TAB PO SCH (09:00)
[2019-10-21] MEDS: Acetaminophen 500 MG TAB PO PRN (12:29)
[2019-10-21] MEDS ORDERED: Furosemide 40 MG TAB PO SCH (13:15)
--- NOTE | 2019-10-21 13:47 | PRG ---
DATE OF SERVICE: 10/21/2019 INTERVAL HISTORY: The patient is doing fine from respiratory standpoint. She indicates that her breathing is basically back to baseline currently. She has no complaints of cough. She is not producing any sputum, and she has no fevers or chills overnight. Ultimately, she does feel better than on presentation. She is yet to be too terribly mobile. She has been most of her day in the bed, though she is working with Physical Therapy, that being actually going quite well. PHYSICAL EXAMINATION: VITAL SIGNS: Afebrile, pulse 74, blood pressure 159/92, respirations 19, saturation 92% on 4 L nasal cannula. GENERAL: The patient is awake and alert, in no apparent distress. LUNGS: Decent air entry. There is not a prolonged expiratory phase. Crackles are present. HEART: Normal rate. Regular. ABDOMEN: Soft, nontender, nondistended. Bowel sounds are positive. MUSCULOSKELETAL: No cyanosis or clubbing. No pitting in the bilateral lower extremities. NEUROLOGIC: Grossly nonfocal. LABORATORY DATA: WBC 7.0, hemoglobin 13.1, platelets 279,000. Potassium 3.5. Basic metabolic profile is unremarkable otherwise. IMAGING: Blood cultures x2 and stool studies are unremarkable. Respiratory virus panel is positive for both influenza B and rhinovirus. ASSESSMENT: 1. [id number] hypoxic respiratory failure. 2. Interstitial lung disease. 3. Chronic diastolic heart failure. 4. Atrial fibrillation. 5. Acute bronchitis secondary to influenza B and rhinovirus. DISCUSSION AND PLAN: The patient is doing fine from respiratory standpoint. From my perspective, she is stable for transition out of the hospital, provided that we have a safe care facility for her to go to. I believe she would benefit from a brief stent in a rehabilitation center, [place] [facility] facility. I will replace the potassium and give her a laboratory holiday tomorrow morning. I will restart her home Lasix that she is not having as much diarrhea. Job ID: [id number]
[2019-10-21] MEDS: Potassium Chloride 20 MEQ TAB PO SCH ×2 (14:21→17:45)
[2019-10-21] MEDS: Zolpidem Tartrate 5 MG TAB PO SCH (20:32)
[2019-10-22] MEDS: Levothyroxine Sodium 50 MCG TAB PO SCH (06:16)
[2019-10-22] MEDS: Sodium Chloride For Inhalation 0.9% 3 ML NEB NEB SCH ×3 (07:00→18:26)
[2019-10-22] MEDS ORDERED: predniSONE 20 MG TAB PO SCH (08:00)
[2019-10-22] MEDS: Digoxin 0.125 MG TAB PO SCH (08:19)
[2019-10-22] MEDS: Cefdinir 300 MG CAP PO SCH (08:19)
[2019-10-22] MEDS: Metoprolol Tartrate 100 MG TAB PO SCH (08:19)
[2019-10-22] MEDS: guaiFENesin ER 600 MG TAB PO SCH (08:20)
[2019-10-22] MEDS: Apixaban 5 MG TAB PO SCH (08:21)
[2019-10-22] MEDS: Azithromycin 250 MG TAB PO SCH (08:21)
[2019-10-22] MEDS: Oseltamivir 75 MG CAP PO SCH (08:22)
[2019-10-22] MEDS: Diphenoxylate HCl/Atropine Tablet PO SCH ×3 (08:23→16:51)
[2019-10-22] MEDS: Ondansetron ODT 4 MG TAB PO SCH ×3 (08:23→16:51)
[2019-10-22] MEDS: Docusate 100 MG CAP PO SCH (08:23)
[2019-10-22] MEDS ORDERED: Furosemide 20 MG TAB PO SCH (09:00)
[2019-10-22 11:30] VITALS: BP 131/81; TEMP 97.8
--- NOTE | 2019-10-22 17:02 | PRG ---
DATE OF SERVICE: 10/22/2019 SERVICE: Pulmonary Medicine. INTERVAL HISTORY: The patient is doing fine from respiratory standpoint. She will likely be transitioning out of the hospital soon to a residential facility to pursue rehabilitation and physical therapy. She denies any fevers, chills, cough, sputum production, nausea, or vomiting. PHYSICAL EXAMINATION: VITAL SIGNS: Afebrile, pulse 52, blood pressure 131/81, respirations 18, saturation 92%, currently on 2 L nasal cannula. GENERAL: The patient is awake and alert, in no apparent distress. LUNGS: Decent air entry. No prolonged expiratory phase or wheezing is appreciated. HEART: Normal rate regular. ABDOMEN: Soft, nontender, nondistended, bowel sounds are positive. MUSCULOSKELETAL: No cyanosis or clubbing. There is trace pitting in the bilateral lower extremities, which is improved. NEUROLOGIC: Grossly nonfocal. ASSESSMENT: 1. Acute on chronic hypoxic respiratory failure. 2. Interstitial lung disease. 3. Chronic diastolic heart failure. 4. Atrial fibrillation. 5. Acute bronchitis secondary to influenza B and rhino virus. DISCUSSION AND PLAN: 1. The patient is doing fine from respiratory standpoint. At this point, she is stable for transition out of the hospital. Pulmonary will continue to follow if she remains in-house, intermittently. She will need to continue her home dose of steroids, and antibiotics. If she remains in-house, Pulmonary will follow, intermittently. Please call Dr. Wilburn if she gets into trouble over this weekend. Job ID: [id number] [facility]
== END 2019-10-22 18:30 | DRG 193 ==
LOC: ERS 13:11 → 2SW 19:16 → OBSVTOIN 10-17 12:45 → T4-A 10-17 14:52
PROVIDERS: ADMIT Specialist; ATTEND Specialist
DX: J10.00 Influenza due to other identified influenza virus with unspecified type of pneumonia (principal); J96.21 Acute and chronic respiratory failure with hypoxia; I48.20 Chronic atrial fibrillation, unspecified; I50.32 Chronic diastolic (congestive) heart failure; J18.9 Pneumonia, unspecified organism; Z88.5 Allergy status to narcotic agent; Z88.0 Allergy status to penicillin; Z88.2 Allergy status to sulfonamides; E03.9 Hypothyroidism, unspecified; K21.9 Gastro-esophageal reflux disease without esophagitis; F32.9 Major depressive disorder, single episode, unspecified; F03.90 Unspecified dementia, unspecified severity, without behavioral disturbance, psychotic disturbance, mood disturbance, and anxiety; Z90.710 Acquired absence of both cervix and uterus; Z79.899 Other long term (current) drug therapy; E86.0 Dehydration; I11.0 Hypertensive heart disease with heart failure
CPT/HCPCS: 36415; 51701; 71045; 71046; 74177; 80048; 80053; 80061; 80162; 81003; 81015; 82550; 83605; 83690; 83735; 84443; 84484; 85025; 87040; 87045; 87046; 87086; 87324; 87328; 87329; 87427; 87449; 87633; 87804; 93005; 94640; 96361; 96365; 96375; A4353; J0456; J0696; J1200; J1940; J2405; J2543; J2920; J2930; J3490; J7042; J7050; J7512; J7614; Q0162; Q9967

== ENCOUNTER 2021-01-15 12:16 | Outpatient (CLI) | payer MEDICARE | END 2021-01-15 12:17 | disposition home or self-care (01) | LOC: BICRAD 12:16 | PROVIDERS: ATTEND Specialist | DX: S32.009A Unspecified fracture of unspecified lumbar vertebra, initial encounter for closed fracture (principal); S22.009A Unspecified fracture of unspecified thoracic vertebra, initial encounter for closed fracture; M51.36 Other intervertebral disc degeneration, lumbar region; M51.34 Other intervertebral disc degeneration, thoracic region; M47.814 Spondylosis without myelopathy or radiculopathy, thoracic region; M47.816 Spondylosis without myelopathy or radiculopathy, lumbar region; M41.9 Scoliosis, unspecified | CPT/HCPCS: 72072; 72100 ==